=== PATIENT | female | born 1940 | race Caucasian/White ===

== ENCOUNTER 2016-05-24 19:42 | Inpatient (IN) | payer MEDICARE, OTHER ==
[~2016-05-24] VITALS: Ht 152.4 cm; Wt 82.7 kg
[2016-05-24] VITALS (8 sets, daily range): BP systolic 168–189; BP diastolic 82–121; PULSE 90–125; RESP 18–22; TEMP 99.1–102.8; O2SAT 95–99
[~2016-05-24 19:42] MED LIST: ASPI81TA82 PO; ATOR20TA PO; BUDE100T PO; FERR324T4 PO; GUAI100S6 PO; METO25 PO; MVI PO; PROT40TA PO; PROZ20CA11 PO
--- NOTE | 2016-05-24 20:30 | PD ---
HPI Chief Complaint: GI Complaint Time Seen by Provider: 20:22 Travel History International Travel<30 days: No Contact w/Intl Traveler<30days: No Traveled to known affect area: No History of Present Illness HPI The patient is a 75-year-old female that complains of midline suprapubic pain since yesterday. She has nausea without vomiting. She did not know she had a fever, the fever here is 102.8. She denies any flank pain. She does have dysuria, frequency and urgency. She has had an appendectomy but still has her gallbladder. She had previous surgery apparently for a perforated peptic ulcer. PFSH Past Medical History Arthritis: Yes Asthma: No Blood Disorders: No Anxiety: Yes Depression: Yes Heart Rhythm Problems: No Cancer: No Cardiac Catheterization: Yes Cardiovascular Problems: Yes (CABG x5) High Cholesterol: Yes Chemotherapy: No Chest Pain: Yes Congestive Heart Failure: No COPD: No Cerebrovascular Accident: Yes Coronary Artery Disease: Yes Diabetes: Yes (DIET CONTR.) Patient Takes Glucophage: No Diminished Hearing: Yes (RIGHT) Endocrine: Yes Gastrointestinal Disorders: Yes (GERD) GERD: No Genitourinary: No Hepatitis: No Hiatal Hernia: Yes Hypertension: Yes Immune Disorder: No Implanted Vascular Access Dvce: Yes Kidney Stones: No Musculoskeletal: Yes (ARTHRITIS) Neurologic: No Psychiatric: Yes (CLAUSTRAPHOBIA) Reproductive: No Respiratory: No Migraines: No Radiation Therapy: No Renal Failure: No Seizures: No Sickle Cell Disease: No Sleep Apnea: No Thyroid Disease: Yes Ulcer: Yes Tetanus Vaccination: Unknown Influenza Vaccination: Yes ?: Not Menopausal: Yes : 4 Para: 3 Miscarriage: 1 Tubal Ligation: Yes Past Surgical History Abdominal Surgery: Yes (SM. BOWEL RESECT. (ULCER), APPY, LAP GASTRIC BANDING) AICD: No Appendectomy: Yes Arteriovenous Shunt: No Cardiac Surgery: No Section: Yes (X2) Coronary Artery Bypass Graft: Yes Ear Surgery: No Endocrine Surgery: No Eye Surgery: No Genitourinary Surgery: No Gynecologic Surgery: Yes (C SECTION (X2), HYSTERECTOMY) Hysterectomy: Yes Insulin Pump: No Joint Replacement: Yes (BILAT KNEES) Oral Surgery: Yes (DENTAL EXTRACT., T & A) Pacemaker: No Thoracic Surgery: No Tonsillectomy: Yes Other Surgery: Yes (LAP BAND) Social History Alcohol Use: Yes (OCC) Tobacco Use: No (quit 30 years ago) Substance Use: No Allergies-Medications (Allergen,Severity, Reaction): Coded Allergies: Latex (Verified Allergy, Intermediate, HIVES, 04/18/15) Reported Meds & Prescriptions Reported Meds & Active Scripts Active Zofran (Ondansetron HCl) 4 Mg Tab 4 Mg PO Q6HR PRN Macrobid (Nitrofurantoin Monoh/Nitrofur Macro) 100 Mg Cap 100 Mg PO BID 10 Days Robitussin Ac (Guaifenesin/Codeine Phosphate) Syrp 5 Ml PO Q6H PRN Theragran (Multivitamins) 1 Tab Tab 1 Tab PO DAILY Prozac (Fluoxetine HCl) 20 Mg Cap 20 Mg PO DAILY Reported Bupropion Hcl (Bupropion HCl) 100 Mg Tab 100 Mg PO DAILY Aspir-81 (Aspirin) 81 Mg Tab 81 Mg PO DAILY Atorvastatin 20 mg tab (Atorvastatin Calcium) 20 Mg Tab 1 Tab PO DAILY 30 Days Protonix (Pantoprazole Sodium) 40 Mg Tab 40 Mg PO DAILY Metoprolol Tartrate 25 mg (Metoprolol Tartrate) 25 Mg Tab 25 Mg PO DAILY Ferrous Sulfate 325 Mg Tab 325 Mg PO DAILY Review of Systems Except as stated in HPI: all other systems reviewed are Neg Physical Exam Narrative GENERAL: The patient is alert, oriented 3 in moderate distress with her midline suprapubic discomfort. She is in no respiratory distress. Her vital signs show temperature of 102.8, blood pressure 188/121, heart rate of 125 with respirations of 18 and oximetry 96%. SKIN: Focused skin assessment warm/dry. HEAD: Atraumatic. Normocephalic. EYES: Pupils equal and round. No scleral icterus. No injection or drainage. ENT: No nasal bleeding or discharge. Mucous membranes pink and moist. NECK: Trachea midline. No JVD. CARDIOVASCULAR: Regular rate and rhythm. No murmur appreciated. RESPIRATORY: No accessory muscle use. Clear to auscultation. Breath sounds equal bilaterally. GASTROINTESTINAL: Abdomen soft, with tenderness to direct palpation in the midline epigastrium, nondistended. Hepatic and splenic margins not palpable. No guarding or rebound is present. MUSCULOSKELETAL: No obvious deformities. No clubbing. No cyanosis. No edema. NEUROLOGICAL: Awake and alert. No obvious cranial nerve deficits. Motor grossly within normal limits. Normal speech. PSYCHIATRIC: Appropriate mood and affect; insight and judgment normal. Data Data Last Documented VS Vital Signs Date Time Temp Pulse Resp B/P Pulse Ox O2 Delivery O2 Flow Rate FiO2 05/24/16 20:57 20 05/24/16 20:54 104 189/93 95 05/24/16 20:54 Nasal Cannula 2 05/24/16 19:45 102.8 Orders Complete Blood Count With Diff (05/24/16 20:22) Comprehensive Metabolic Panel (05/24/16 20:22) Lactic Acid Sepsis Protocol (05/24/16 20:22) Urinalysis - C+S If Indicated (05/24/16 20:22) Blood Culture (05/24/16 20:22) Chest, Pa & Lat (05/24/16 20:22) Ecg Monitoring (05/24/16 20:22) Iv Access Insert/Monitor (05/24/16 20:22) Oximetry (05/24/16 20:22) Oxygen Administration (05/24/16 20:22) Acetaminophen (Tylenol) (05/24/16 21:00) Urine Culture (05/24/16 20:50) Nitrofurantoin Monohyd Macrocr (Macrobid (05/24/16 22:15) Admit Order (Ed Use Only) (05/24/16 22:27) Sodium Chlor 0.9% 1000 Ml Inj (Ns 1000 M (05/24/16 22:30) Labs Laboratory Tests Test 05/24/16 05/24/16 05/24/16 19:40 20:30 20:50 Lactic Acid Level 2.0 mmol/L White Blood Count 16.7 TH/MM3 Red Blood Count 4.09 MIL/MM3 Hemoglobin 12.9 GM/DL Hematocrit 38.2 % Mean Corpuscular Volume 93.4 FL Mean Corpuscular Hemoglobin 31.4 PG Mean Corpuscular Hemoglobin 33.7 % Concent Red Cell Distribution Width 13.8 % Platelet Count 245 TH/MM3 Mean Platelet Volume 8.8 FL Neutrophils (%) (Auto) 91.6 % Lymphocytes (%) (Auto) 4.8 % Monocytes (%) (Auto) 2.3 % Eosinophils (%) (Auto) 0.2 % Basophils (%) (Auto) 1.1 % Neutrophils # (Auto) 15.3 TH/MM3 Lymphocytes # (Auto) 0.8 TH/MM3 Monocytes # (Auto) 0.4 TH/MM3 Eosinophils # (Auto) 0.0 TH/MM3 Basophils # (Auto) 0.2 TH/MM3 CBC Comment DIFF FINAL Differential Comment Sodium Level 140 MEQ/L Potassium Level 4.1 MEQ/L Chloride Level 104 MEQ/L Carbon Dioxide Level 25.3 MEQ/L Anion Gap 11 MEQ/L Blood Urea Nitrogen 17 MG/DL Creatinine 1.50 MG/DL Estimat Glomerular Filtration 34 ML/MIN Rate Random Glucose 169 MG/DL Calcium Level 8.5 MG/DL Total Bilirubin 0.6 MG/DL Aspartate Amino Transf 26 U/L (AST/SGOT) Alanine Aminotransferase 23 U/L (ALT/SGPT) Alkaline Phosphatase 106 U/L Total Protein 7.1 GM/DL Albumin 3.6 GM/DL Urine Color STRAW Urine Turbidity CLOUDY Urine pH 6.5 Urine Specific [place] 1.013 Urine Protein 100 mg/dL Urine Glucose (UA) NEG mg/dL Urine Ketones NEG mg/dL Urine Occult Blood MOD Urine Nitrite NEG Urine Bilirubin NEG Urine Leukocyte Esterase LARGE Urine RBC 4-9 /hpf Urine WBC 50-99 /hpf Urine Squamous Epithelial 6-8 /hpf Cells Urine Bacteria MOD /hpf Urine Mucus FEW /lpf Microscopic Urinalysis Comment CATH-CULTURE IND MDM Medical Decision Making Medical Screen Exam Complete: Yes Emergency Medical Condition: Yes Medical Record Reviewed: Yes Interpretation(s) The CBC shows a white count of 16,700 with 92% neutrophils but is otherwise unremarkable. The complete metabolic profile shows a creatinine of 1.5, GFR of 34, glucose 169 but is otherwise normal. The lactic acid is normal. The urine shows cloudy turbidity, moderate occult blood, large leukocyte Estrace with 4-9 red cells and 50-99 white cells and moderate bacteria and culture is indicated. Differential Diagnosis Cystitis, pyelonephritis, sepsis, pneumonia, bronchitis, electrolyte disorder, dehydration Narrative Course The patient was offered admission but she declined. She would much rather try it at home with oral antibiotics and return if not better. She should follow- up with her primary care physician this week. He needs to increase her liquid intake. We were about to discharge the patient but she changed her mind and said she wanted to be admitted. She states she lives alone and doesn't feel good because of the nausea. The patient does fit sepsis criteria. I discussed the patient with Dr. Quintanilla, the patient will be admitted to her. Sepsis Criteria SIRS Criteria (2 or more): Temp > 100.9 or < 96.8, Heart rate over 90, WBC > 81058, < 4000 or > 10% bands Sepsis Criteria (SIRS+source): Infect source susp/known Criteria Outcome: Meets sepsis criteria Physician Communication Physician Communication I discussed the patient with Dr. Quintanilla. Diagnosis Primary Impression: Pyelonephritis Additional Impression: Sepsis Admitting Information Admitting Physician Requests: Admit Scripts Ondansetron (Zofran)4 Mg Tab4 Mg PO Q6HR PRN (NAUSEA OR VOMITING) #15 TAB Ref 0 Prov:Mark Dueñas MD 05/24/16 Nitrofurantoin Monohydrate Macrocrystals (Macrobid)100 Mg Ive086 Mg PO BID 10 Days Ref 0 Prov:Mark Dueñas MD 05/24/16 Mark Dueñas MD May 24, 2016 20:29
[2016-05-24 20:39] LABS: AUTOMATED NEUTROPHIL # 15.3 TH/MM3 (1.8-7.7); BASOPHIL # 0.2 TH/MM3 (0-0.2); BASOPHIL % 1.1 % (0.0-2.0); EOSINOPHIL % 0.2 % (0.0-4.0); HEMATOCRIT 38.2 % (35.0-46.0); LYMPH % 4.8 % (9.0-44.0); LYMPHOCYTE # 0.8 TH/MM3 (1.0-4.8); MEAN CELL VOLUME 93.4 FL (80.0-100.0); MEAN CORPUSCULAR HEMOGLOBIN 31.4 PG (27.0-34.0); MEAN CORPUSCULAR HGB CONC 33.7 % (32.0-36.0); MONO % 2.3 % (0.0-8.0); NEUT % 91.6 % (16.0-70.0); PLATELET COUNT 245 TH/MM3 (150-450); RED BLOOD COUNT 4.09 MIL/MM3 (4.00-5.30); RED CELL DISTRIBUTION WIDTH 13.8 % (11.6-17.2); WHITE BLOOD COUNT 16.7 TH/MM3 (4.0-11.0)
[2016-05-24 20:47] LABS: CHLORIDE 104 MEQ/L (98-107); HEMO FLAGS DIFF FINAL; SODIUM (NA) 140 MEQ/L (136-145)
[2016-05-24 20:51] LABS: ANION GAP 11 MEQ/L (5-15); BICARBONATE 25.3 MEQ/L (21.0-32.0); BLOOD UREA NITROGEN 17 MG/DL (7-18)
[2016-05-24 20:54] LABS: ALT (GPT) 23 U/L (10-53); AST (GOT) 26 U/L (15-37); GLOMERULAR FILTRATION RATE 34 ML/MIN (>89)
[2016-05-24 20:55] LABS: POTASSIUM 4.1 MEQ/L (3.5-5.1); TOTAL BILIRUBIN ADULT 0.6 MG/DL (0.2-1.0)
[2016-05-24 20:57] LABS: ALKALINE PHOSPHATASE 106 U/L (45-117)
[2016-05-24] MEDS ORDERED: ACETAMINOPHEN 500 MG CPLT PO ONE (21:00)
[2016-05-24 21:02] LABS: GLUCOSE,URINE NEG (NEG); KETONE, URINE NEG (NEG); NITRITE,URINE NEG (NEG); PH, URINE 6.5 (5.0-8.5)
--- NOTE | 2016-05-24 21:10 | RADHPO ---
EXAM DATE/TIME: 05/24/2016 20:58 [facility] COMPARISON: CHEST PA & LAT, April 17, 2015, 18:44. INDICATIONS : Shortness of breath. MEDICAL HISTORY : Cardiovascular disease. SURGICAL HISTORY : CABG. ENCOUNTER: Initial ACUITY: 1 day PAIN SCORE: 0/10 LOCATION: Bilateral chest FINDINGS: No infiltrate, effusion or pneumothorax demonstrated. Heart size stable, upper limits of normal. Patient has had previous median sternotomy and CABG. Tortu ous and atherosclerotic aorta again noted. CONCLUSION: No evidence of acute cardiopulmonary disease. Prabhakar Ha MD on May 24, 2016 at 21:07 Board Certified Radiologist. This report was verified electronically.
[2016-05-24 21:13] LABS: BLOOD, URINE MOD (NEG); URINE COLOR STRAW (YELLW/STRAW)
[2016-05-24 21:16] LABS: MUCUS URINE FEW /lpf (OCC)
[2016-05-24 21:17] LABS: BACTERIA, URINE MOD /hpf; COMMENT (UR) CATH-CULTURE IND; CULTURE IF INDICATED CATH CULTURE IND
[2016-05-24] MEDS ORDERED: MACR100C2 PO (22:10)
[2016-05-24] MEDS ORDERED: ZOFR4TAB PO (22:10)
[2016-05-24] MEDS ORDERED: cefTRIAXone INJ 1,000 MG in SODIUM CHLORIDE 0.9% INJ 100 ML IV ONE ×2 (22:15→22:45)
[2016-05-24] MEDS ORDERED: NITROFURANTOIN MONOHYD MACROCR 100 MG CAP PO ONE (22:15)
[2016-05-24] MEDS ORDERED: SODIUM CHLOR 0.9% 1000 ML INJ 1,000 ML IV SCH (22:30)
[2016-05-24] MEDS ORDERED: SODIUM CHLORIDE 0.9% FLUSH 10 ML FLUSH IV FLUSH PRN (23:15)
[2016-05-24] MEDS ORDERED: NALOXONE HCL 0.4 MG/ML AMP IV PRN (23:15)
[2016-05-24] MEDS ORDERED: ONDANSETRON HCL 4 MG/2 ML VIAL IVP PRN (23:15)
[2016-05-25] VITALS (11 sets, daily range): BP systolic 121–161; BP diastolic 68–91; PULSE 64–89; RESP 16–20; TEMP 97–99.5; O2SAT 94–98
[2016-05-25] MEDS: CIPROFLOXACIN 400 MG PREMIX 200 ML IV SCH ×2 (00:48→12:20)
[2016-05-25] MEDS ORDERED: METOPROLOL TARTRATE 25 MG TAB PO ONE (02:15)
[2016-05-25] MEDS: ACETAMINOPHEN 325 MG TAB PO PRN ×2 (02:19→09:47)
[2016-05-25] MEDS ORDERED: DEXTROSE 50% IN WATER 50 ML VIAL(D50) IV PUSH PRN (05:45)
[2016-05-25] MEDS ORDERED: CALCIUM CARBONATE 500 MG CHEWABLE TAB CHEW PRN (05:45)
[2016-05-25] MEDS ORDERED: GLUCAGON 1 MG/ML VIAL OTHER PRN (05:45)
[2016-05-25] MEDS ORDERED: DOCUSATE SODIUM 100 MG CAP PO PRN (05:45)
[2016-05-25] MEDS ORDERED: PILL SPLITTER OTHER PRN (06:15)
[2016-05-25] MEDS: INSULIN ASPART SUPPLEMENTAL SCALE SQ SCH ×4 (06:27→20:58)
[2016-05-25] MEDS: OXYBUTYNIN CHLORIDE 5 MG TAB PO SCH ×3 (06:28→20:54)
[2016-05-25 07:31] LABS: AUTOMATED NEUTROPHIL # 15.7 TH/MM3 (1.8-7.7); BASOPHIL # 0.2 TH/MM3 (0-0.2); EOSINOPHIL # 0.1 TH/MM3 (0-0.4); EOSINOPHIL % 0.3 % (0.0-4.0); HEMATOCRIT 36.7 % (35.0-46.0); LYMPH % 7.2 % (9.0-44.0); LYMPHOCYTE # 1.3 TH/MM3 (1.0-4.8); MEAN CELL VOLUME 93.1 FL (80.0-100.0); MEAN CORPUSCULAR HEMOGLOBIN 29.7 PG (27.0-34.0); MEAN CORPUSCULAR HGB CONC 31.9 % (32.0-36.0); MONO % 5.9 % (0.0-8.0); NEUT % 85.6 % (16.0-70.0); PLATELET COUNT 215 TH/MM3 (150-450); RED BLOOD COUNT 3.95 MIL/MM3 (4.00-5.30); RED CELL DISTRIBUTION WIDTH 12.9 % (11.6-17.2); WHITE BLOOD COUNT 18.4 TH/MM3 (4.0-11.0)
[2016-05-25 07:40] LABS: HEMO FLAGS AUTO DIFF
[2016-05-25 07:42] LABS: POTASSIUM 3.8 MEQ/L (3.5-5.1)
[2016-05-25 07:46] LABS: BICARBONATE 27.5 MEQ/L (21.0-32.0)
[2016-05-25 08:08] LABS: SCAN/DIFF AUTO DIFF CONFIRMED
[2016-05-25] MEDS ORDERED: OXYBUTYNIN CHLORIDE 5 MG TAB PO SCH (09:00)
[2016-05-25] MEDS: SODIUM CHLORIDE 0.9% FLUSH 10 ML FLUSH IV FLUSH SCH ×2 (09:00→20:58)
--- NOTE | 2016-05-25 09:50 | HHI.HP ---
cc: Jose Holloway MD HPI [facility] Jose Holloway MD Admission Diagnosis sepsis, pyelonephritis Diagnoses: (1) Sepsis Diagnosis: Principal (2) Pyelonephritis Diagnosis: Principal (3) Acute renal failure superimposed on stage 3 chronic kidney disease Diagnosis: Principal Chief Complaint: suprapubic and R back pain Travel History International Travel<30 Days: No Contact w/Intl Traveler <30 Da: No Traveled to Known Affected Are: No Sepsis Criteria SIRS Criteria (2 or more): Temp > 100.9 or < 96.8, Heart rate over 90, WBC > 40994, < 4000 or > 10% bands Sepsis Criteria (SIRS+source): Infect source susp/known Criteria Outcome: Meets sepsis criteria History of Present Illness 75-year-old female with history of coronary artery disease, CVA, diet controlled diabetes, GERD, hypertension, HLD, anxiety and depression, arthritis presents with complaint of suprapubic and right back pain. She states the suprapubic pain started first on Tuesday and then 8 hours later she started to experience pain over the right flank region. She states the pain is constant dull ache. She states she'll try to lay a certain way but nothing makes it better. She admits to nausea. Denies any vomiting. She admits to dysuria and increased urinary frequency. Highest fever in ED of 102.8. Patient denies any history of UTIs or kidney infection. No acute bowel issues. Review of Systems Except as stated in HPI: all other systems reviewed are Neg Past Family Social History Past Medical History CAD CVA Hyperlipidemia Hypertension Diet-controlled diabetes GERD Arthritis Anxiety and depression Past Surgical History CABG x 5 Appendectomy LAP Band Small bowel resection due to ulcer 2 Hysterectomy Bilateral knee replacements Tonsillectomy Reported Medications Zofran (Ondansetron HCl) 4 Mg Tab 4 Mg PO Q6HR PRN Macrobid (Nitrofurantoin Monoh/Nitrofur Macro) 100 Mg Cap 100 Mg PO BID 10 Days Robitussin Ac (Guaifenesin/Codeine Phosphate) Syrp 5 Ml PO Q6H PRN Theragran (Multivitamins) 1 Tab Tab 1 Tab PO DAILY Prozac (Fluoxetine HCl) 20 Mg Cap 20 Mg PO DAILY Reported Bupropion Hcl (Bupropion HCl) 100 Mg Tab 100 Mg PO DAILY Aspir-81 (Aspirin) 81 Mg Tab 81 Mg PO DAILY Atorvastatin 20 mg tab (Atorvastatin Calcium) 20 Mg Tab 1 Tab PO DAILY 30 Days Protonix (Pantoprazole Sodium) 40 Mg Tab 40 Mg PO DAILY Metoprolol Tartrate 25 mg (Metoprolol Tartrate) 25 Mg Tab 25 Mg PO DAILY Ferrous Sulfate 325 Mg Tab 325 Mg PO DAILY Allergies: Coded Allergies: Latex (Verified Allergy, Intermediate, HIVES, 04/18/15) Family History Family history of MIs, CVAs, hypertension Social History Quit smoking cigarettes 30 years ago. Admits to occasional alcohol use. Physical Exam Vital Signs Vital Signs Date Time Temp Pulse Resp B/P Pulse Ox O2 Delivery O2 Flow Rate FiO2 05/25/16 08:00 99.1 72 18 145/82 96 05/25/16 06:00 75 05/25/16 05:00 76 05/25/16 04:00 64 05/25/16 04:00 98.1 66 20 161/82 97 05/25/16 03:00 70 05/25/16 02:00 89 05/25/16 01:42 98.7 78 20 121/91 96 05/25/16 01:00 99.0 87 20 139/68 98 05/24/16 23:12 99.1 90 20 168/99 98 Nasal Cannula 2 05/24/16 22:12 100.8 98 20 178/82 97 Nasal Cannula 2 05/24/16 22:00 100.9 98 20 168/82 99 Nasal Cannula 2 05/24/16 21:20 99 20 189/93 97 Nasal Cannula 2 05/24/16 20:57 20 05/24/16 20:54 104 20 189/93 95 05/24/16 20:54 95 Nasal Cannula 2 05/24/16 20:30 102.4 110 20 178/93 96 Nasal Cannula 2 05/24/16 20:20 101.9 108 22 177/96 97 Nasal Cannula 2 05/24/16 19:45 102.8 125 18 188/121 96 Physical Exam GENERAL: This is a pleasant elderly well-nourished, well-developed patient, in no apparent distress. SKIN: No rashes, ecchymoses or lesions. Warm and dry. HEAD: Atraumatic. Normocephalic. EYES: No scleral icterus. No injection or drainage. CARDIOVASCULAR: Regular rate and rhythm without murmurs, gallops, or rubs. RESPIRATORY: Clear to auscultation. Breath sounds equal bilaterally. No wheezes , rales, or rhonchi. GASTROINTESTINAL: Normoactive bowel sounds. Abdomen soft, non-tender, nondistended. Tender over suprapubic region and left lower quadrant. BACK: R sided CVA tenderness. NEUROLOGICAL: Awake and alert. Motor grossly within normal limits. Normal speech. PSYCHIATRIC: Normal mood and affect. Laboratory Laboratory Tests Test 05/24/16 05/24/16 05/24/16 05/25/16 19:40 20:30 20:50 07:25 Lactic Acid Level 2.0 White Blood Count 16.7 18.4 Red Blood Count 4.09 3.95 Hemoglobin 12.9 11.7 Hematocrit 38.2 36.7 Mean Corpuscular Volume 93.4 93.1 Mean Corpuscular Hemoglobin 31.4 29.7 Mean Corpuscular Hemoglobin 33.7 31.9 Concent Red Cell Distribution Width 13.8 12.9 Platelet Count 245 215 Mean Platelet Volume 8.8 8.5 Neutrophils (%) (Auto) 91.6 85.6 Lymphocytes (%) (Auto) 4.8 7.2 Monocytes (%) (Auto) 2.3 5.9 Eosinophils (%) (Auto) 0.2 0.3 Basophils (%) (Auto) 1.1 1.0 Neutrophils # (Auto) 15.3 15.7 Lymphocytes # (Auto) 0.8 1.3 Monocytes # (Auto) 0.4 1.1 Eosinophils # (Auto) 0.0 0.1 Basophils # (Auto) 0.2 0.2 CBC Comment DIFF FINAL AUTO DIFF Differential Comment AUTO DIFF CONFIRMED Sodium Level 140 142 Potassium Level 4.1 3.8 Chloride Level 104 105 Carbon Dioxide Level 25.3 27.5 Anion Gap 11 10 Blood Urea Nitrogen 17 17 Creatinine 1.50 1.50 Estimat Glomerular Filtration 34 34 Rate Random Glucose 169 120 Calcium Level 8.5 8.7 Total Bilirubin 0.6 Aspartate Amino Transf 26 (AST/SGOT) Alanine Aminotransferase 23 (ALT/SGPT) Alkaline Phosphatase 106 Total Protein 7.1 Albumin 3.6 Urine Color STRAW Urine Turbidity CLOUDY Urine pH 6.5 Urine Specific [place] 1.013 Urine Protein 100 Urine Glucose (UA) NEG Urine Ketones NEG Urine Occult Blood MOD Urine Nitrite NEG Urine Bilirubin NEG Urine Leukocyte Esterase LARGE Urine RBC 4-9 Urine WBC 50-99 Urine Squamous Epithelial 6-8 Cells Urine Bacteria MOD Urine Mucus FEW Microscopic Urinalysis Comment CATH-CULTURE IND Total Creatine Kinase 62 Date/Time Procedure Status Source Growth 05/24/16 20:50 Urine Culture Received Urine Catheterized Urine Pending 05/24/16 19:40 Aerobic Blood Culture Received Blood Peripheral Pending 05/24/16 19:40 Anaerobic Blood Culture Received Blood Peripheral Pending Result Diagram: 05/25/16 0725 05/25/1625 Imaging Last Impressions Chest X-Ray 05/24/162021 Signed Impressions: Service Date/Time: Tuesday, May 24, 2016 20:58 - CONCLUSION: No evidence of acute cardiopulmonary disease. Prabhakar Ha MD Assessment and Plan Assessment and Plan 75-year-old female with: Sepsis: WBC count 16.7-->18.4. MAXIMUM TEMPERATURE 102.8 in ED. Source of infection pyelonephritis. Lactic acid normal. -Patient received 1 L of fluids in the ED. Continue IV normal saline at 80 mL per hour. -Continue antibiotics as below -Tylenol for fever -Repeat a.m. CBC -Blood cultures pending Pyelonephritis: UTI personally interpreted without evidence of infection. Patient with right sided CVA tenderness, leukocytosis, and fever. -Continue Cipro every 12 hours IV -Urine culture pending -Monitor clinically. If patient fails to improve may need to consider CT imaging. Acute on chronic kidney disease: Cr 1.50 stable today. -Continue IVF as above -Repeat am BMP Diet-controlled diabetes: -Bedside BGL's and low dose SSI Chronic medical conditions including hypertension, hyperlipidemia, anxiety and depression, GERD: Patient has been continuing her baby aspirin and bupropion, but she states she was in [place] for 4-5 months and ran out of her statin, Protonix, metoprolol, ferrous sulfate, and Prozac which she is supposed to be taking. She states she did not call her PCP because she was mad at him. I informed the patient she needs to continue on these medications. Will resume these. GI prophylaxis: Protonix DVT prevention: TEDs and SCDs. Written by Heather Amor PA-C acting as scribe for Dr. Ying on 05/25/16 at 0945. This note was transcribed by scribe Heather Amor PA-C. I, Dr. Adal Ying personally performed the history, physical exam, and medical decision making; and confirmed the accuracy of the information in the transcribed note. Authenticated by Dr. Adal Ying on 05/25/16 at 18:50. Heather Amor May 25, 2016 09:50 Adal Ying MD May 26, 2016 16:51
[2016-05-25] MEDS ORDERED: ACETAMINOPHEN/HYDROcodone 325 MG/5 MG TAB PO PRN (10:00)
[2016-05-25] MEDS ORDERED: NALOXONE HCL 0.4 MG/ML AMP IV PRN (10:00)
[2016-05-25] MEDS ORDERED: MORPHINE SULFATE 4 MG/ML INJ IV PRN (10:00)
[2016-05-25] MEDS: ACETAMINOPHEN/HYDROcodone 325 MG/7.5 MG TAB PO PRN ×2 (10:44→20:55)
[2016-05-25] MEDS: PANTOPRAZOLE SOD 40 MG DELAYED RELEASE TAB PO SCH (12:00)
[2016-05-25] MEDS: buPROPion HCL 100 MG SUSTAINED RELEASE TAB PO SCH (12:19)
[2016-05-25] MEDS: ASPIRIN 81 MG CHEW TAB PO SCH (12:19)
[2016-05-25] MEDS: METOPROLOL TARTRATE 25 MG TAB PO SCH (12:19)
[2016-05-25] MEDS: SODIUM CHLOR 0.9% 1000 ML INJ 1,000 ML IV SCH (12:21)
[2016-05-25] MEDS: ATORVASTATIN 20 MG TAB PO SCH (20:54)
[2016-05-26] VITALS: BP 158/84; PULSE 77; RESP 18; TEMP 98.1; O2SAT 98
[2016-05-26] MEDS: CIPROFLOXACIN 400 MG PREMIX 200 ML IV SCH ×3 (01:02→23:36)
[2016-05-26] MEDS: SODIUM CHLOR 0.9% 1000 ML INJ 1,000 ML IV SCH ×3 (01:03→20:29)
[2016-05-26 04:00] VITALS: BP 120/60; PULSE 72; RESP 18; TEMP 99.1; O2SAT 99
[2016-05-26] MEDS: INSULIN ASPART SUPPLEMENTAL SCALE SQ SCH ×4 (06:07→20:29)
[2016-05-26 07:37] LABS: AUTOMATED NEUTROPHIL # 12.4 TH/MM3 (1.8-7.7); BASOPHIL # 0.2 TH/MM3 (0-0.2); BASOPHIL % 1.2 % (0.0-2.0); EOSINOPHIL # 0.3 TH/MM3 (0-0.4); EOSINOPHIL % 1.6 % (0.0-4.0); HEMATOCRIT 34.5 % (35.0-46.0); HEMO FLAGS DIFF FINAL; LYMPH % 9.9 % (9.0-44.0); LYMPHOCYTE # 1.6 TH/MM3 (1.0-4.8); MEAN CELL VOLUME 95.6 FL (80.0-100.0); MEAN CORPUSCULAR HEMOGLOBIN 30.5 PG (27.0-34.0); MEAN CORPUSCULAR HGB CONC 31.9 % (32.0-36.0); MONO % 8.8 % (0.0-8.0); NEUT % 78.5 % (16.0-70.0); PLATELET COUNT 218 TH/MM3 (150-450); RED CELL DISTRIBUTION WIDTH 13.7 % (11.6-17.2); WHITE BLOOD COUNT 15.9 TH/MM3 (4.0-11.0)
[2016-05-26 07:43] LABS: BICARBONATE 23.9 MEQ/L (21.0-32.0)
[2016-05-26 08:00] VITALS: BP 129/80; PULSE 76; RESP 20; TEMP 99; O2SAT 92
[2016-05-26] MEDS: OXYBUTYNIN CHLORIDE 5 MG TAB PO SCH ×2 (08:10→20:28)
[2016-05-26] MEDS: buPROPion HCL 100 MG SUSTAINED RELEASE TAB PO SCH (08:10)
[2016-05-26] MEDS: FERROUS SULFATE 325 MG (65 MG ELEMENTAL IRON) TAB PO SCH (08:10)
[2016-05-26] MEDS: SODIUM CHLORIDE 0.9% FLUSH 10 ML FLUSH IV FLUSH SCH ×2 (08:10→20:28)
[2016-05-26] MEDS: METOPROLOL TARTRATE 25 MG TAB PO SCH (08:10)
[2016-05-26] MEDS: FLUoxetine HCL 20 MG CAP PO SCH (08:11)
[2016-05-26] MEDS: PANTOPRAZOLE SOD 40 MG DELAYED RELEASE TAB PO SCH (08:11)
[2016-05-26] MEDS: ASPIRIN 81 MG CHEW TAB PO SCH (08:11)
[2016-05-26] MEDS ORDERED: INFLUENZA VIRUS VACCINE (QUADRIVALENT) 0.5 ML SYR IM ONE (10:00)
[2016-05-26 12:00] VITALS: BP 132/72; PULSE 64; RESP 20; TEMP 99.1; O2SAT 93
[2016-05-26 16:00] VITALS: BP 149/72; PULSE 74; RESP 20; TEMP 99.1; O2SAT 92
--- NOTE | 2016-05-26 18:56 | HHI.PR ---
Subjective Remarks Patient evaluated earlier at 1255. Follow up for sepsis, pyelonephritis. Patient denies any further abdominal pain or flank pain. She does admit to feeling weak. Objective Vitals Vital Signs Date Time Temp Pulse Resp B/P Pulse Ox O2 Delivery O2 Flow Rate FiO2 05/26/16 16:00 99.1 74 20 149/72 92 05/26/16 12:00 99.1 64 20 132/72 93 05/26/16 08:00 99.0 76 20 129/80 92 05/26/16 04:00 99.1 72 18 120/60 99 05/26/16 00:00 98.1 77 18 158/84 98 05/25/16 21:55 20 05/25/16 20:00 97.0 70 18 153/77 98 05/25/16 20:00 67 I/O 05/25/16 05/25/16 05/25/16 05/26/16 05/26/16 05/26/16 07:00 15:00 23:00 07:00 15:00 23:00 Intake Total 240 ml 900 ml 240 ml 1487 ml 470 ml Output Total 1200 ml Balance 240 ml 900 ml 240 ml 1487 ml 470 ml -1200 ml Intake Oral 240 ml 900 ml 240 ml IV Total 1487 ml 470 ml Output Urine Total 1200 ml # Voids 3 4 3 # Bowel Movements 0 0 Result Diagram: 05/26/1672405/26/16724 Objective Remarks GENERAL: Pleasant well-nourished, well-developed patient in apparent distress. SKIN: Warm and dry. HEAD: Atraumatic. Normocephalic. CARDIOVASCULAR: Regular rate and rhythm. RESPIRATORY: No accessory muscle use. Clear to auscultation. Breath sounds equal bilaterally. GASTROINTESTINAL: Normoactive bowel sounds. Abdomen soft, non-tender, nondistended. NEUROLOGICAL: Awake and alert. Normal speech. PSYCHIATRIC: Appropriate mood and affect; insight and judgment normal. Urinary Catheter: No Vascular Central Line Catheter: No A/P Problem List: (1) Sepsis ICD Code: A41.9 Status: Resolved (2) Pyelonephritis ICD Code: N12 Status: Acute (3) Acute renal failure superimposed on stage 3 chronic kidney disease ICD Code: N17.9 Status: Acute (4) Generalized weakness ICD Code: R53.1 Status: Acute Assessment and Plan 75-year-old female with: Sepsis: Improving. WBC count 16.7-->18.4-->15.9. MAXIMUM TEMPERATURE 102.8 in ED. Source of infection pyelonephritis. Lactic acid normal. -Continue IV normal saline at 80 mL per hour. -Continue antibiotics as below -Tylenol for fever -Repeat a.m. CBC -Blood cultures no growth in 2 days Pyelonephritis: UTI with evidence of infection. Patient with right sided CVA tenderness, leukocytosis, and fever. Improving, flank pain now resolved. Afebrile. -Urine culture reviewed with E.coli susceptible to Cipro -Continue Cipro every 12 hours IV Acute on chronic kidney disease: Improved. Cr 1.50-->1.40 -Continue IVF as above -Repeat am BMP Generalized weakness: likely attributed to infection -Consult PT Diet-controlled diabetes: -Bedside BGL's and low dose SSI Chronic medical conditions including hypertension, hyperlipidemia, anxiety and depression, GERD: Patient has been continuing her baby aspirin and bupropion, but she states she was in [place] for 4-5 months and ran out of her statin, Protonix, metoprolol, ferrous sulfate, and Prozac which she is supposed to be taking. She states she did not call her PCP because she was mad at him. I informed the patient she needs to continue on these medications. Medications resumed. GI prophylaxis: Protonix DVT prevention: TEDs and SCDs. Written by Heather Amor PA-C acting as scribe for Dr. Ngo on 05/26/16 at 1255. This note was transcribed by scribe Heather Amor PA-C. I, Dr. Garret Ngo personally performed the history, physical exam, and medical decision making; and confirmed the accuracy of the information in the transcribed note. Authenticated by Dr. Garret Ngo on 05/27/16 at 07:56. Heather Amor May 26, 2016 18:56 Garret Ngo MD May 27, 2016 07:56
[2016-05-26 20:00] VITALS: BP 162/83; PULSE 74; PULSE 80; RESP 20; TEMP 98.5; O2SAT 92
[2016-05-26] MEDS: ATORVASTATIN 20 MG TAB PO SCH (20:28)
[2016-05-26] MEDS: ACETAMINOPHEN/HYDROcodone 325 MG/7.5 MG TAB PO PRN (20:28)
[2016-05-27] VITALS: BP 149/73; PULSE 68; RESP 20; TEMP 98.2; O2SAT 92
[2016-05-27 04:00] VITALS: BP 175/86; PULSE 79; RESP 20; TEMP 98.5; O2SAT 93
[2016-05-27 05:40] LABS: AUTOMATED NEUTROPHIL # 7.8 TH/MM3 (1.8-7.7); BASOPHIL # 0.2 TH/MM3 (0-0.2); BASOPHIL % 1.5 % (0.0-2.0); EOSINOPHIL # 0.4 TH/MM3 (0-0.4); EOSINOPHIL % 3.2 % (0.0-4.0); HEMATOCRIT 32.2 % (35.0-46.0); LYMPH % 12.5 % (9.0-44.0); LYMPHOCYTE # 1.4 TH/MM3 (1.0-4.8); MEAN CELL VOLUME 93.4 FL (80.0-100.0); MEAN CORPUSCULAR HEMOGLOBIN 29.6 PG (27.0-34.0); MEAN CORPUSCULAR HGB CONC 31.7 % (32.0-36.0); MONO % 10.6 % (0.0-8.0); NEUT % 72.2 % (16.0-70.0); PLATELET COUNT 218 TH/MM3 (150-450); RED BLOOD COUNT 3.45 MIL/MM3 (4.00-5.30); RED CELL DISTRIBUTION WIDTH 13.1 % (11.6-17.2)
[2016-05-27 05:43] LABS: HEMO FLAGS AUTO DIFF
[2016-05-27 05:53] LABS: POTASSIUM 3.8 MEQ/L (3.5-5.1)
[2016-05-27 05:56] LABS: BICARBONATE 22.8 MEQ/L (21.0-32.0)
[2016-05-27 05:59] LABS: PLATELET ESTIMATE SMEAR NORMAL (NORMAL); PLATELET MORPHOLOGY NORMAL (NORMAL); SCAN/DIFF AUTO DIFF CONFIRMED
[2016-05-27] MEDS: INSULIN ASPART SUPPLEMENTAL SCALE SQ SCH ×2 (06:24→12:01)
[2016-05-27 09:01] VITALS: BP 188/99; PULSE 79; RESP 14; TEMP 98.7; O2SAT 93
[2016-05-27] MEDS: buPROPion HCL 100 MG SUSTAINED RELEASE TAB PO SCH (09:13)
[2016-05-27] MEDS: OXYBUTYNIN CHLORIDE 5 MG TAB PO SCH (09:13)
[2016-05-27] MEDS: ASPIRIN 81 MG CHEW TAB PO SCH (09:13)
[2016-05-27] MEDS: METOPROLOL TARTRATE 25 MG TAB PO SCH (09:13)
[2016-05-27] MEDS: FERROUS SULFATE 325 MG (65 MG ELEMENTAL IRON) TAB PO SCH (09:13)
[2016-05-27] MEDS: SODIUM CHLORIDE 0.9% FLUSH 10 ML FLUSH IV FLUSH SCH (09:13)
[2016-05-27] MEDS: PANTOPRAZOLE SOD 40 MG DELAYED RELEASE TAB PO SCH (09:13)
[2016-05-27] MEDS: FLUoxetine HCL 20 MG CAP PO SCH (09:13)
--- NOTE | 2016-05-27 09:27 | HHI.FF ---
Face to Face Verification Diagnosis: (1) Pyelonephritis (2) DM (diabetes mellitus) (3) CKD (chronic kidney disease) (4) HTN (hypertension) (5) Impaired gait Physical Therapy Order: Evaluate and Treat Home Health Nursing Order: Nursing assessment with vital signs I have seen patient Lou Peterson on 05/27/16. My clinical findings support the need for the requested home health care services because: Deconditioned w/ increased weakness I certify that my clinical findings support that this patient is homebound because: Unsteady gait/balance Garret Ngo MD May 27, 2016 09:27
[2016-05-27] MEDS ORDERED: METO25TA3 PO (09:33)
[2016-05-27] MEDS ORDERED: FLUO20CA4 PO (09:33)
[2016-05-27] MEDS ORDERED: CIPR500T2 PO (09:33)
[2016-05-27] MEDS ORDERED: FERR325T PO (09:33)
[2016-05-27] MEDS ORDERED: PANT40TA3 PO (09:33)
[2016-05-27] MEDS ORDERED: ATOR20TA15 PO (09:33)
[2016-05-27] MEDS ORDERED: BUPR100CR PO (09:33)
--- NOTE | 2016-05-27 09:35 | HHI.DCPOC ---
Discharge Care Plan Diagnosis: (1) Pyelonephritis (2) Generalized weakness (3) Acute renal failure superimposed on stage 3 chronic kidney disease Goals to Promote Your Health * To prevent worsening of your condition and complications * To maintain your health at the optimal level Directions to Meet Your Goals Take your medications as prescribed Follow your dietary instruction Follow activity as directed Keep your appointments as scheduled Take your immunizations and boosters as scheduled If your symptoms worsen call your PCP, if no PCP go to Urgent Care Center or Emergency Room Smoking is Dangerous to Your Health. Avoid second hand smoke Call the 24-hour hour crisis hotline for domestic abuse at Garret Ngo MD May 27, 2016 09:34
--- NOTE | 2016-05-27 09:37 | HHI.DS ---
cc: Jose Holloway MD Discharge Summary Admission Date May 25, 2016 at 16:04 Discharge Date: May 27, 2016 Admitting Diagnosis sepsis, pyelonephritis (1) Sepsis ICD Code: A41.9 (2) Pyelonephritis ICD Code: N12 (3) Acute renal failure superimposed on stage 3 chronic kidney disease ICD Code: N17.9 (4) Generalized weakness ICD Code: R53.1 Procedures None Brief History - From Admission 75-year-old female with history of coronary artery disease, CVA, diet controlled diabetes, GERD, hypertension, HLD, anxiety and depression, arthritis presents with complaint of suprapubic and right back pain. She states the suprapubic pain started first on Tuesday and then 8 hours later she started to experience pain over the right flank region. She states the pain is constant dull ache. She states she'll try to lay a certain way but nothing makes it better. She admits to nausea. Denies any vomiting. She admits to dysuria and increased urinary frequency. Highest fever in ED of 102.8. Patient denies any history of UTIs or kidney infection. No acute bowel issues. CBC/BMP: 05/27/16 0511 05/27/16 0511 Significant Findings Laboratory Tests Test 05/24/16 05/24/16 05/25/16 05/26/16 20:30 20:50 07:25 07:25 Creatinine 1.50 MG/DL 1.50 MG/DL 1.40 MG/DL (0.50-1.00) (0.50-1.00) (0.50-1.00) Estimat Glomerular Filtration 34 ML/MIN (>89) 34 ML/MIN (>89) 36 ML/MIN (>89) Rate Random Glucose 169 MG/DL 120 MG/DL 113 MG/DL (74-106) (74-106) (74-106) White Blood Count 16.7 TH/MM3 18.4 TH/MM3 15.9 TH/MM3 (4.0-11.0) (4.0-11.0) (4.0-11.0) Neutrophils (%) (Auto) 91.6 % 85.6 % 78.5 % (16.0-70.0) (16.0-70.0) (16.0-70.0) Lymphocytes (%) (Auto) 4.8 % 7.2 % (9.0-44.0) (9.0-44.0) Neutrophils # (Auto) 15.3 TH/MM3 15.7 TH/MM3 12.4 TH/MM3 (1.8-7.7) (1.8-7.7) (1.8-7.7) Lymphocytes # (Auto) 0.8 TH/MM3 (1.0-4.8) Urine Turbidity CLOUDY (CLEAR) Urine Protein 100 mg/dL (NEG-TRACE) Urine Occult Blood MOD (NEG) Urine Leukocyte Esterase LARGE (NEG) Urine RBC 4-9 /hpf (0-3) Urine WBC 50-99 /hpf (0-5) Urine Squamous Epithelial 6-8 /hpf (0-5) Cells Urine Bacteria MOD /hpf (NONE) Urine Mucus FEW /lpf (OCC) Red Blood Count 3.95 MIL/MM3 3.60 MIL/MM3 (4.00-5.30) (4.00-5.30) Mean Corpuscular Hemoglobin 31.9 % 31.9 % Concent (32.0-36.0) (32.0-36.0) Monocytes # (Auto) 1.1 TH/MM3 1.4 TH/MM3 (0-0.9) (0-0.9) Hemoglobin 11.0 GM/DL (11.6-15.3) Hematocrit 34.5 % (35.0-46.0) Monocytes (%) (Auto) 8.8 % (0.0-8.0) Test 05/27/16 05:11 Red Blood Count 3.45 MIL/MM3 (4.00-5.30) Hemoglobin 10.2 GM/DL (11.6-15.3) Hematocrit 32.2 % (35.0-46.0) Mean Corpuscular Hemoglobin 31.7 % Concent (32.0-36.0) Neutrophils (%) (Auto) 72.2 % (16.0-70.0) Monocytes (%) (Auto) 10.6 % (0.0-8.0) Neutrophils # (Auto) 7.8 TH/MM3 (1.8-7.7) Monocytes # (Auto) 1.2 TH/MM3 (0-0.9) Chloride Level 109 MEQ/L (98-107) Creatinine 1.30 MG/DL (0.50-1.00) Estimat Glomerular Filtration 40 ML/MIN (>89) Rate Random Glucose 111 MG/DL (74-106) Imaging Last Impressions Chest X-Ray 05/24/162021 Signed Impressions: Service Date/Time: Tuesday, May 24, 2016 20:58 - CONCLUSION: No evidence of acute cardiopulmonary disease. Prabhakar Ha MD PE at Discharge General: Elderly female in no acute distress. Heart: Regular rate and rhythm. No murmur. Lungs: Clear to auscultation bilaterally. No wheezes, rales, or rhonchi. Breathing is nonlabored. Abdomen: Soft, nontender, nondistended. No flank tenderness. Extremities: No lower extremity edema. Psych: Alert and oriented. Pt update on day of discharge Patient states that she feels much better. Weakness has improved. She denies abdominal pain or flank pain. No fever or chills. No nausea, vomiting. She feels ready to go home. Hospital Course The patient was admitted for treatment of pyelonephritis, sepsis. She was continued on IV fluids and her creatinine was monitored closely. She was started on IV antibiotics. She showed clinical improvement throughout the hospitalization. On the day of discharge, the patient was felt to be stable for discharge home. She was given a short-term prescription for each of her chronic medications and advised to follow-up with her PCP for further refills or possible medication adjustments. Pt Condition on Discharge: Stable Discharge Disposition: Disch w/ Home Health Serv Discharge Time: > 30 minutes Discharge Instructions DIET: Follow Instructions for: Heart Healthy Diet Activities you can perform: Regular-No Restrictions Follow up Referrals: PCP Follow-up - 1 Week New Medications: Ciprofloxacin (Ciprofloxacin) 500 Mg Tab 500 MG PO BID Infection #10 Ref 0 TAB Atorvastatin (Atorvastatin) 20 Mg Tab 20 MG PO HS Cholesterol Management #30 Ref 0 TAB Bupropion HCl ER 12 HR (Wellbutrin SR 12 HR) 100 Mg Tab 100 MG PO DAILY Depression Control #30 Ref 0 TAB Ferrous Sulfate (Ferrous Sulfate) 325 Mg Tab 325 MG PO DAILY supplement #30 Ref 0 TAB Fluoxetine (Fluoxetine) 20 Mg Cap 20 MG PO DAILY Depression Control #30 Ref 0 CAP Metoprolol Tartrate (Metoprolol Tartrate) 25 Mg Tab 25 MG PO BID Blood Pressure Management #30 Ref 0 TAB Pantoprazole (Pantoprazole) 40 Mg Tab 40 MG PO DAILY Reflux #30 Ref 0 TAB Continued Medications: Aspirin (Aspir-81) 81 Mg Tab 81 MG PO DAILY TAB Multivitamins (Theragran) 1 Tab Tab 1 TAB PO DAILY #30 Ref 1 TAB Discontinued Medications: Atorvastatin 20 mg (Atorvastatin 20 mg tab) 20 Mg Tab 1 TAB PO DAILY Days 30 TAB Bupropion Hcl (Bupropion Hcl) 100 Mg Tab 100 MG PO DAILY TAB Ferrous Sulfate (Ferrous Sulfate) 325 Mg Tab 325 MG PO DAILY TAB Fluoxetine Hcl (Prozac) 20 Mg Cap 20 MG PO DAILY #30 Ref 1 CAP Guaifenesin-Codeine (Robitussin Ac) Syrp 5 ML PO Q6H PRN COUGH #120 ML Metoprolol Tartrate 25 mg (Metoprolol Tartrate 25 mg) 25 Mg Tab 25 MG PO DAILY TAB Nitrofurantoin Monohydrate Macrocrystals (Macrobid) 100 Mg Cap 100 MG PO BID Infection Days 10 Ref 0 CAP Ondansetron (Zofran) 4 Mg Tab 4 MG PO Q6HR PRN NAUSEA OR VOMITING #15 Ref 0 TAB Pantoprazole Sodium (Protonix) 40 Mg Tab 40 MG PO DAILY TAB Garret Ngo MD May 27, 2016 09:37
[2016-05-27] MEDS: CIPROFLOXACIN 400 MG PREMIX 200 ML IV SCH (12:01)
[2016-07-15] MEDS ORDERED: WHEEMIS3 (14:37)
[2016-07-20] MEDS ORDERED: HYDR-3516 PO (08:46)
[2016-07-20] MEDS ORDERED: AMLO5 PO (08:46)
[2016-07-20] MEDS ORDERED: PLAV75TA29 PO (08:46)
[2016-07-20] MEDS ORDERED: ACET1TAB86 PO (08:46)
[2016-07-20] MEDS ORDERED: BUPR100CR PO (08:46)
[2016-07-20] MEDS ORDERED: PROT40TA PO (08:46)
[2016-07-20] MEDS ORDERED: ATOR20TA15 PO (08:46)
[2016-07-20] MEDS ORDERED: ASPI325T33 PO (08:46)
[2016-07-20] MEDS ORDERED: FERR324T4 PO (08:46)
[2016-07-20] MEDS ORDERED: METO25TA3 PO (08:46)
== END 2016-05-27 15:15 | disposition home or self-care (01) | DRG 872 ==
LOC: PHED 19:42 → PHEDA 22:29 → INTOOBSV 22:29 → PH3A 05-25 01:14 → OBSVTOIN 05-25 16:04
PROVIDERS: ADMIT Family Medicine; ATTEND Family Medicine
DX: A41.9 Sepsis, unspecified organism (principal); N17.9 Acute kidney failure, unspecified; E11.22 Type 2 diabetes mellitus with diabetic chronic kidney disease; I25.810 Atherosclerosis of coronary artery bypass graft(s) without angina pectoris; N12 Tubulo-interstitial nephritis, not specified as acute or chronic; N18.3 Chronic kidney disease, stage 3 (moderate); I12.9 Hypertensive chronic kidney disease with stage 1 through stage 4 chronic kidney disease, or unspecified chronic kidney disease; E78.5 Hyperlipidemia, unspecified; Z95.1 Presence of aortocoronary bypass graft; K21.9 Gastro-esophageal reflux disease without esophagitis; H91.90 Unspecified hearing loss, unspecified ear; F41.8 Other specified anxiety disorders; Z86.73 Personal history of transient ischemic attack (TIA), and cerebral infarction without residual deficits; Z87.11 Personal history of peptic ulcer disease; Z96.653 Presence of artificial knee joint, bilateral
CPT/HCPCS: 71020; 80048; 80053; 81001; 82550; 82948; 83605; 83735; 85025; 87040; 87077; 87086; 87186; 90471; 90686; G0008; G0009; G0378; J0696; J0744; J1815; J2405; J7030; Q2038

== ENCOUNTER → 2016-06-22 | Outpatient (CLI) | payer MEDICARE, OTHER ==
[~2016-06-22] MED LIST changes: +ACET1TAB86 PO; +AMLO5 PO; +ASPI325T33 PO; -ATOR20TA PO; +ATOR20TA15 PO; -BUDE100T PO; +BUPR100CR PO; +CIPR500T2 PO; +FERR325T PO; +FLUO20CA12 PO; +FLUO20CA4 PO; -GUAI100S6 PO; +HYDR-3516 PO; -METO25 PO; +METO25TA3 PO; +PANT40TA3 PO; +PLAV75TA29 PO; -PROZ20CA11 PO; +WHEEMIS3
--- NOTE | 2016-06-22 13:38 | EKG ---
Date Performed: 06/22/2016 Time Performed: 11:15:48 PTAGE: 75 years EKG: Sinus rhythm WITH OCCASIONAL VENTRICULAR PREMATURE COMPLEXES LEFT VENTRICULAR HYPERTROPHY AND ST-T CHANGE POSSIBL E SEPTAL MYOCARDIAL INFARCTION , PROBABLY OLD ABNORMAL ECG PREVIOUS TRACING : 10/11/2013 21.34 Compared to prior tracing no significant change DOCTOR: Medhat Rhodes Interpretating Date/Time 06/22/2016 13:36:24
== END ==
LOC: HCVO 11:00
PROVIDERS: ATTEND Ophthalmology
DX: Z01.810 Encounter for preprocedural cardiovascular examination (principal); I51.7 Cardiomegaly; Z01.812 Encounter for preprocedural laboratory examination
CPT/HCPCS: 36415; 85027; 93005

== ENCOUNTER → 2016-06-22 | Outpatient (CLI) | payer MEDICARE, OTHER ==
[2016-06-22 11:53] LABS: HEMATOCRIT 35.9 % (35.0-46.0); MEAN CELL VOLUME 93.9 FL (80.0-100.0); MEAN CORPUSCULAR HEMOGLOBIN 29.9 PG (27.0-34.0); MEAN CORPUSCULAR HGB CONC 31.8 % (32.0-36.0); PLATELET COUNT 235 TH/MM3 (150-450); RED BLOOD COUNT 3.83 MIL/MM3 (4.00-5.30); RED CELL DISTRIBUTION WIDTH 14.1 % (11.6-17.2); REVIEW FLAG FINAL; WHITE BLOOD COUNT 7.9 TH/MM3 (4.0-11.0)
== END ==
LOC: CLAB 11:29
PROVIDERS: ATTEND Ophthalmology
DX: Z01.812 Encounter for preprocedural laboratory examination (principal)
CPT/HCPCS: 36415; 85027

== ENCOUNTER 2016-07-02 18:34 | Inpatient (IN) | payer MEDICARE, OTHER ==
[~2016-07-02] VITALS: Ht 152.4 cm; Wt 88.8 kg
[~2016-07-02 18:34] MED LIST changes: -ACET1TAB86 PO; -AMLO5 PO; -ASPI325T33 PO; -FERR324T4 PO; -FLUO20CA12 PO; -HYDR-3516 PO; -PLAV75TA29 PO; -PROT40TA PO; -WHEEMIS3
[2016-07-02] MEDS ORDERED: FERR324T4 PO (18:44)
[2016-07-02] MEDS ORDERED: PROT40TA PO (18:44)
[2016-07-02] MEDS ORDERED: FLUO20CA12 PO (18:45)
[2016-07-02 18:46] VITALS: BP 165/104; PULSE 77; RESP 18; TEMP 97.8; O2SAT 99
[2016-07-02] MEDS ORDERED: SODIUM CHLORIDE 0.9% FLUSH 10 ML FLUSH IVF PRN (19:15)
[2016-07-02 19:17] VITALS: RESP 18; O2SAT 99
--- NOTE | 2016-07-02 19:18 | PD ---
HPI Chief Complaint: General Weakness Time Seen by Provider: 19:13 Travel History International Travel<30 days: No Contact w/Intl Traveler<30days: No Traveled to known affect area: No History of Present Illness HPI The patient is a 75-year-old female that 2 days ago noticed her hip "collapsed on" her. Thereafter she felt twice 2 days ago and discovered every time she puts weight on the hip it hurts and she cannot walk. She denies any other injury. She denies any head trauma. She denies any loss of consciousness. She denies any nausea or vomiting. She is not on any anticoagulants. PFSH Past Medical History Hx Anticoagulant Therapy: Yes Arthritis: Yes Asthma: No Blood Disorders: No Anxiety: Yes Depression: Yes Heart Rhythm Problems: No Cancer: No Cardiac Catheterization: Yes Cardiovascular Problems: Yes High Cholesterol: Yes Chemotherapy: No Chest Pain: Yes Congestive Heart Failure: No COPD: No Cerebrovascular Accident: Yes Coronary Artery Disease: Yes Diabetes: Yes (DIET CONTR.) Patient Takes Glucophage: No Diminished Hearing: Yes (RIGHT) Endocrine: Yes Gastrointestinal Disorders: Yes (GERD) GERD: No Genitourinary: No Hepatitis: No Hiatal Hernia: Yes Hypertension: Yes Immune Disorder: No Implanted Vascular Access Dvce: Yes Kidney Stones: No Musculoskeletal: Yes (ARTHRITIS) Neurologic: No Psychiatric: Yes (CLAUSTRAPHOBIA) Reproductive: No Respiratory: No Migraines: No Radiation Therapy: No Renal Failure: No Seizures: No Sickle Cell Disease: No Sleep Apnea: No Thyroid Disease: Yes Ulcer: Yes Tetanus Vaccination: < 5 Years Influenza Vaccination: Yes ?: Not Menopausal: Yes : 4 Para: 3 Miscarriage: 1 Tubal Ligation: Yes Past Surgical History Abdominal Surgery: Yes (SM. BOWEL RESECT. (ULCER), APPY, LAP GASTRIC BANDING) AICD: No Appendectomy: Yes Arteriovenous Shunt: No Cardiac Surgery: No Section: Yes (X2) Coronary Artery Bypass Graft: Yes Ear Surgery: No Endocrine Surgery: No Eye Surgery: No Genitourinary Surgery: No Gynecologic Surgery: Yes (C SECTION (X2), HYSTERECTOMY) Hysterectomy: Yes Insulin Pump: No Joint Replacement: Yes (BILAT KNEES) Oral Surgery: Yes (DENTAL EXTRACT., T & A) Pacemaker: No Thoracic Surgery: No Tonsillectomy: Yes Other Surgery: Yes (LAP BAND) Social History Alcohol Use: Yes (OCC) Tobacco Use: No (quit 30 years ago) Substance Use: No Allergies-Medications (Allergen,Severity, Reaction): Coded Allergies: Latex (Verified Allergy, Intermediate, HIVES, 07/02/16) Reported Meds & Prescriptions Reported Meds & Active Scripts Active Wellbutrin SR 12 HR (Bupropion HCl) 100 Mg Tab 100 Mg PO DAILY Atorvastatin (Atorvastatin Calcium) 20 Mg Tab 20 Mg PO HS Metoprolol Tartrate 25 Mg Tab 25 Mg PO BID Reported Fluoxetine (Fluoxetine HCl) 20 Mg Capsule 20 Mg PO DAILY Protonix (Pantoprazole Sodium) 40 Mg Tab 40 Mg PO DAILY Ferrous Sulfate DR (Ferrous Sulfate) 324 Mg Tabdr 325 Mg PO DAILY Review of Systems Except as stated in HPI: all other systems reviewed are Neg Physical Exam Narrative GENERAL: The patient is alert, oriented 3 in moderate apparent distress with her right hip pain. Her blood pressure is 165/104 but the rest the vital signs are normal. SKIN: Focused skin assessment warm/dry. HEAD: Atraumatic. Normocephalic. EYES: Pupils equal and round. No scleral icterus. No injection or drainage. ENT: No nasal bleeding or discharge. Mucous membranes pink and moist. NECK: Trachea midline. No JVD. CARDIOVASCULAR: Regular rate and rhythm. No murmur appreciated. RESPIRATORY: No accessory muscle use. Clear to auscultation. Breath sounds equal bilaterally. GASTROINTESTINAL: Abdomen soft, non-tender, nondistended. Hepatic and splenic margins not palpable. MUSCULOSKELETAL: No obvious deformities. No clubbing. No cyanosis. No edema. There is slight tenderness over the right hip to direct palpation. There is no foreshortening and good capillary refill and pinprick is present distally. Good dorsalis pedis pulses are present on the right. NEUROLOGICAL: Awake and alert. No obvious cranial nerve deficits. Motor grossly within normal limits. Normal speech. PSYCHIATRIC: Appropriate mood and affect; insight and judgment normal. Data Data Last Documented VS Vital Signs Date Time Temp Pulse Resp B/P Pulse Ox O2 Delivery O2 Flow Rate FiO2 07/02/16 21:00 81 18 157/89 97 Room Air 07/02/16 18:46 97.8 Orders Electrocardiogram (07/02/16 19:13) Complete Blood Count With Diff (07/02/16 19:13) Comprehensive Metabolic Panel (07/02/16 19:13) Urinalysis - C+S If Indicated (07/02/16 19:13) Hip, Uni(Ap&Lat) W Ap Pelvis (07/02/16 19:13) Iv Access Insert/Monitor (07/02/16 19:13) Oximetry (07/02/16 19:13) Ecg Monitoring (07/02/16 19:13) Sodium Chloride 0.9% Flush (Ns Flush) (07/02/16 19:15) Ct Hip W/O Contrast (07/02/16 ) Admit Order (Ed Use Only) (07/02/16 22:03) Labs Laboratory Tests Test 07/02/16 07/02/16 18:50 21:15 White Blood Count 8.9 TH/MM3 Red Blood Count 4.18 MIL/MM3 Hemoglobin 12.9 GM/DL Hematocrit 38.7 % Mean Corpuscular Volume 92.7 FL Mean Corpuscular Hemoglobin 30.9 PG Mean Corpuscular Hemoglobin 33.4 % Concent Red Cell Distribution Width 13.6 % Platelet Count 291 TH/MM3 Mean Platelet Volume 9.4 FL Neutrophils (%) (Auto) 55.8 % Lymphocytes (%) (Auto) 30.4 % Monocytes (%) (Auto) 9.8 % Eosinophils (%) (Auto) 3.3 % Basophils (%) (Auto) 0.7 % Neutrophils # (Auto) 5.0 TH/MM3 Lymphocytes # (Auto) 2.7 TH/MM3 Monocytes # (Auto) 0.9 TH/MM3 Eosinophils # (Auto) 0.3 TH/MM3 Basophils # (Auto) 0.1 TH/MM3 CBC Comment AUTO DIFF Differential Comment AUTO DIFF CONFIRMED Sodium Level 140 MEQ/L Potassium Level 4.3 MEQ/L Chloride Level 103 MEQ/L Carbon Dioxide Level 29.1 MEQ/L Anion Gap 8 MEQ/L Blood Urea Nitrogen 29 MG/DL Creatinine 1.41 MG/DL Estimat Glomerular Filtration 36 ML/MIN Rate Random Glucose 94 MG/DL Calcium Level 9.3 MG/DL Total Bilirubin 0.3 MG/DL Aspartate Amino Transf 19 U/L (AST/SGOT) Alanine Aminotransferase 21 U/L (ALT/SGPT) Alkaline Phosphatase 117 U/L Total Protein 7.6 GM/DL Albumin 4.0 GM/DL Urine Color LIGHT-YELLOW Urine Turbidity HAZY Urine pH 7.0 Urine Specific Allison 1.008 Urine Protein NEG mg/dL Urine Glucose (UA) NEG mg/dL Urine Ketones NEG mg/dL Urine Occult Blood NEG Urine Nitrite NEG Urine Bilirubin NEG Urine Urobilinogen LESS THAN 2.0 MG/DL Urine Leukocyte Esterase NEG Urine WBC 1 /hpf Urine Amorphous Sediment RARE Microscopic Urinalysis Comment CATH-CULT NOT IND MDM Medical Decision Making Medical Screen Exam Complete: Yes Emergency Medical Condition: Yes Medical Record Reviewed: Yes Interpretation(s) The CT scan as well as plain films of the right hip are negative. Differential Diagnosis Hip fracture, contusion hip, fracture pelvis, anemia, electrolyte disorder Narrative Course The patient still cannot walk so she will be admitted to the [facility] service for 23 hour observation. Impression: Arthritis right hip Diagnosis Primary Impression: Arthritis of right hip Additional Impression: Inability to ambulate due to hip Admitting Information Admitting Physician Requests: Observation Mark Dueñas MD July 02, 2016 19:18
--- NOTE | 2016-07-02 19:56 | RADRPT ---
EXAM DATE/TIME: 07/02/2016 19:30 [facility] COMPARISON: CT ABDOMEN & PELVIS W CONTRAST, October 12, 2013, 13:36. INDICATIONS : Right hip pain for 24 hours with no known injury MEDICAL HISTORY : None. SURGICAL HISTORY : None. ENCOUNTER: Initial ACUITY: 1 day PAIN SCORE: 7/10 LOCATION: Right entire hip FINDINGS: 3 views of the pelvis and right hip show osteopenia. Old trauma involving the superior and inferior p ubic rami on the right. No acute fracture or dislocation. Bilateral hip osteoarthritis is mild. Soft tissues are unremarkable. CONCLUSION: 1. No acute abnormality. 2. Old trauma involving the right pelvis. Eric Mendez Jr., MD on July 02, 2016 at 19:53 Board Certified Radiologist. This report was verified electronically.
[2016-07-02 20:14] LABS: BASOPHIL # 0.1 TH/MM3 (0-0.2); BASOPHIL % 0.7 % (0.0-2.0); EOSINOPHIL # 0.3 TH/MM3 (0-0.4); EOSINOPHIL % 3.3 % (0.0-4.0); HEMATOCRIT 38.7 % (35.0-46.0); LYMPH % 30.4 % (9.0-44.0); LYMPHOCYTE # 2.7 TH/MM3 (1.0-4.8); MEAN CELL VOLUME 92.7 FL (80.0-100.0); MEAN CORPUSCULAR HEMOGLOBIN 30.9 PG (27.0-34.0); MEAN CORPUSCULAR HGB CONC 33.4 % (32.0-36.0); MONO % 9.8 % (0.0-8.0); NEUT % 55.8 % (16.0-70.0); PLATELET COUNT 291 TH/MM3 (150-450); RED BLOOD COUNT 4.18 MIL/MM3 (4.00-5.30); RED CELL DISTRIBUTION WIDTH 13.6 % (11.6-17.2); WHITE BLOOD COUNT 8.9 TH/MM3 (4.0-11.0)
[2016-07-02 20:17] LABS: HEMO FLAGS AUTO DIFF
[2016-07-02 20:43] LABS: ALKALINE PHOSPHATASE 117 U/L (45-117); ALT (GPT) 21 U/L (10-53); ANION GAP 8 MEQ/L (5-15); AST (GOT) 19 U/L (15-37); BICARBONATE 29.1 MEQ/L (21.0-32.0); BLOOD UREA NITROGEN 29 MG/DL (7-18); CHLORIDE 103 MEQ/L (98-107); GLOMERULAR FILTRATION RATE 36 ML/MIN (>89); SODIUM (NA) 140 MEQ/L (136-145); TOTAL BILIRUBIN ADULT 0.3 MG/DL (0.2-1.0)
[2016-07-02 20:47] LABS: SCAN/DIFF AUTO DIFF CONFIRMED
[2016-07-02 20:48] LABS: POTASSIUM 4.3 MEQ/L (3.5-5.1)
[2016-07-02 21:00] VITALS: BP 157/89; PULSE 81; RESP 18; O2SAT 97
--- NOTE | 2016-07-02 21:47 | RADRPT ---
EXAM DATE/TIME: 07/02/2016 20:57 [facility] COMPARISON: No previous studies available for comparison. INDICATIONS : Multiple falls, pain and weakness to right hip RADIATION DOSE: 23.15 CTDIvol (mGy) MEDICAL HISTORY : None SURGICAL HISTORY : None ENCOUNTER: Initial ACUITY: 1 day PAIN SCALE: 8/10 LOCATION: Right Hip TECHNIQUE: Volumetric scanning of the hip was performed. Using automated exposure control and adjustment of the mA and/or kV according to patient size, radiation dose was kept as low as reasonably achievable to o btain optimal diagnostic quality images. FINDINGS: Old fractures with lack of union again seen involving the superior and inferior pubic rami on the rig ht. There is partial fusion of the superior pubic ramus fracture. No acute fractures or dislocations. Mild osteoarthritis of the hip. Degenerative changes of the lower lumbar spine. Sigmoid diverticulos is without acute inflammation. Calcified plaque involving the aorta and inflow vessels. CONCLUSION: 1. Old trauma as detailed above. 2. No acute abnormality. 3. Mild right hip osteoarthritis. Eric Mendez Jr., MD on July 02, 2016 at 21:43 Board Certified Radiologist. This report was verified electronically.
[2016-07-02] MEDS ORDERED: SODIUM CHLOR 0.9% 1000 ML INJ 1,000 ML IV SCH (22:06)
--- NOTE | 2016-07-02 22:09 | HHI.HP ---
HPI [facility] Physician Jose Holloway MD Admission Diagnosis right hip pain, following spells Diagnoses: (1) Recurrent falls Diagnosis: Principal (2) Right hip pain Diagnosis: Principal (3) Renal insufficiency Diagnosis: Principal (4) HTN (hypertension) Diagnosis: Principal Travel History International Travel<30 Days: No Contact w/Intl Traveler <30 Da: No Traveled to Known Affected Are: No History of Present Illness This is a 75-year-old female with a PMH of Anxiety, Depression, HTN, Hyperlipidemia, GERD and Diet Controlled DM who presented to the ER with complaints of right hip pain after fall. Per patient had complaints acute right hip pain 2 days ago, heard sudden "snap" and had immediate complaints of right hip pain. No fall or injury at that time. Since then, however, she's had ongoing right hip pain w/ multiple falls. Unable to walk at this time due to pain. On arrival, BP 165/104, HR 77, O2 sat 99% on RA, Afebrile. CBC unremarkable. Creatinine 1.41, previously 1.30 on 05/27/16. UA negative. Hip X -ray with no acute findings, old trauma involving right pelvis. CT Lower Extremity with old trauma, no acute findings. Pt unable to ambulate at this time, unsafe discharge home. Review of Systems Except as stated in HPI: all other systems reviewed are Neg ROS: 14 point review of systems otherwise negative. Past Family Social History Past Medical History PMH: Anxiety, Depression, HTN, Hyperlipidemia, GERD and Diet Controlled DM Past Surgical History PAST SURGICAL HISTORY: Small Bowel Resection, Appendectomy, Gastric Banding, C- section, CABG, Hysterectomy, Bilateral Knee Replacement with Dental Extraction, Tonsillectomy Allergies: Coded Allergies: Latex (Verified Allergy, Intermediate, HIVES, 07/02/16) Family History PAST FAMILY HISTORY: Reviewed. No h/o DM or CAD Social History PAST SOCIAL HISTORY: Negative for alcohol, tobacco or drugs. Physical Exam Vital Signs Vital Signs Date Time Temp Pulse Resp B/P Pulse Ox O2 Delivery O2 Flow Rate FiO2 07/02/16 19:17 18 99 07/02/16 18:52 76 17 99 Room Air 07/02/16 18:46 97.8 77 18 165/104 99 Physical Exam PE: GENERAL: Pleasant elderly female in no acute distress. HEENT: PERRLA, EOMI. No scleral icterus or conjunctival pallor. No lid lag or facial droop. CARDIOVASCULAR: Regular rate and rhythm. No obvious murmurs to auscultation. No chest tenderness to palpation. RESPIRATORY: No obvious rhonchi or wheezing. Clear to auscultation. Breath sounds equal bilaterally. GASTROINTESTINAL: Abdomen soft, non-tender, nondistended. BS normal. MUSCULOSKELETAL: Extremities without clubbing, cyanosis, or edema. No obvious deformities. Mild decreased ROM of RLE due to pain. NEUROLOGICAL: Awake, alert and oriented x4. No focal neurologic deficits. Moving both upper and lower extremities spontaneously. Laboratory Laboratory Tests Test 07/02/16 18:50 White Blood Count 8.9 Red Blood Count 4.18 Hemoglobin 12.9 Hematocrit 38.7 Mean Corpuscular Volume 92.7 Mean Corpuscular Hemoglobin 30.9 Mean Corpuscular Hemoglobin 33.4 Concent Red Cell Distribution Width 13.6 Platelet Count 291 Mean Platelet Volume 9.4 Neutrophils (%) (Auto) 55.8 Lymphocytes (%) (Auto) 30.4 Monocytes (%) (Auto) 9.8 Eosinophils (%) (Auto) 3.3 Basophils (%) (Auto) 0.7 Neutrophils # (Auto) 5.0 Lymphocytes # (Auto) 2.7 Monocytes # (Auto) 0.9 Eosinophils # (Auto) 0.3 Basophils # (Auto) 0.1 CBC Comment AUTO DIFF Differential Comment AUTO DIFF CONFIRMED Sodium Level 140 Potassium Level 4.3 Chloride Level 103 Carbon Dioxide Level 29.1 Anion Gap 8 Blood Urea Nitrogen 29 Creatinine 1.41 Estimat Glomerular Filtration 36 Rate Random Glucose 94 Calcium Level 9.3 Total Bilirubin 0.3 Aspartate Amino Transf 19 (AST/SGOT) Alanine Aminotransferase 21 (ALT/SGPT) Alkaline Phosphatase 117 Total Protein 7.6 Albumin 4.0 Result Diagram: 07/02/16184907/02/161849 Assessment and Plan Problem List: (1) Recurrent falls ICD Code: R29.6 Status: Acute (2) Right hip pain ICD Code: M25.551 Status: Acute (3) Renal insufficiency ICD Code: N28.9 Status: Acute (4) HTN (hypertension) ICD Code: I10 Status: Chronic Assessment and Plan A/P: 1. Recurrent Falls: no LOC or head trauma, reports unstable gait secondary to right hip pain. Hip/Pelvis X-ray w/ no acute findings, CT Lower Extremity w/ old trauma, no acute findings, images reviewed by me. Unsafe discharge home at this time as pt unable to ambulate independently. Admit for Observation, PT for eval/tx, Case Management for assistance w/ discharge/placement as needed. 2. Right Hip Pain: secondary to above, no injuries as noted in imaging, continue analgesics as needed. 3. Renal Insufficiency: Chronic. Creatinine 1.41, previously 1.30 on . U/a negative. IVF for hydration, repeat labs in am. 4. HTN: BP 160's on arrival, likely compounded by pain complaints. Resume home Metoprolol, monitor BP. 5. DVT Prophylaxis: SCD/Teds. 6. Social work for d/c planning as needed. 7. Case discussed w/ ER physician at length. Desiree Love MD July 02, 2016 22:08
[2016-07-02] MEDS ORDERED: ACETAMINOPHEN 325 MG TAB PO PRN (22:15)
[2016-07-02] MEDS ORDERED: BISACODYL 10 MG SUPP RECTAL PRN (22:15)
[2016-07-02] MEDS ORDERED: MAGNESIUM HYDROXIDE SUSP 30 ML CUP PO PRN (22:15)
[2016-07-02] MEDS ORDERED: ONDANSETRON HCL 4 MG/2 ML VIAL IVP PRN (22:15)
[2016-07-02] MEDS ORDERED: LACTULOSE SYRUP 20 GM/30 ML CUP PO PRN (22:15)
[2016-07-02] MEDS ORDERED: SODIUM CHLORIDE 0.9% FLUSH 10 ML FLUSH IV FLUSH PRN (22:15)
[2016-07-02] MEDS ORDERED: KETOROLAC TROMETHAMINE 30 MG/ML (IVP) VIAL IV PUSH ONE (22:15)
[2016-07-02] MEDS ORDERED: SENNOSIDES 8.6 MG TAB PO PRN (22:15)
[2016-07-02 22:17] LABS: BLOOD, URINE NEG (NEG); GLUCOSE,URINE NEG (NEG); KETONE, URINE NEG (NEG); NITRITE,URINE NEG (NEG); URINE COLOR LIGHT-YELLOW (YELLW/STRAW)
[2016-07-02 22:21] LABS: COMMENT (UR) CATH-CULT NOT IND; CULTURE IF INDICATED CATH CULTURE NOT IND
[2016-07-02 23:10] VITALS: BP 187/86; PULSE 71; RESP 18; TEMP 97.8; O2SAT 95
[2016-07-02] MEDS: MORPHINE SULFATE 4 MG/ML INJ IV PRN (23:17)
[2016-07-03 05:13] VITALS: BP 143/71; PULSE 64; RESP 18; TEMP 97.6; O2SAT 92
--- NOTE | 2016-07-03 08:17 | HHI.PR ---
Subjective Remarks Follow-up for right hip pain. The patient reports that she is comfortable while lying in the bed. She states that she does have discomfort in her right hip joint whenever she moves it. She denies any recent injury. She does state that she had pelvis fractures 3 years ago. She does follow with an orthopedic doctor, Dr. Staples, in [place]. She states that the pain medicine does help some. She states that she is normally very independent at home, but does have friends that can help her out if needed. She states that she has an old walker from when she had knee surgery in the past. She would like to go home if possible once able. Addendum 1045: Physical therapist reported that the patient was significantly dizzy when standing. The patient states that she's been having dizziness with standing for the past 2 days. Also patient reports that she's had right facial numbness since this morning. She's never had anything like this before. She states her previous stroke she had weakness. She denies any weakness at this time. She denies any other paresthesias. She denies any back pain. Objective Vitals Vital Signs Date Time Temp Pulse Resp B/P Pulse Ox O2 Delivery O2 Flow Rate FiO2 07/03/16 05:13 97.6 64 18 143/71 92 07/03/16 01:07 18 07/02/16 23:10 97.8 71 18 187/86 95 07/02/16 21:00 81 18 157/89 97 Room Air 07/02/16 19:17 18 99 07/02/16 18:52 76 17 99 Room Air 07/02/16 18:46 97.8 77 18 165/104 99 Result Diagram: 07/02/16184907/02/161849 Imaging Last Impressions Hip and Pelvis X-Ray 07/02/16 1913 Signed Impressions: Service Date/Time: Saturday, July 02, 2016 19:30 - CONCLUSION: 1. No acute abnormality. 2. Old trauma involving the right pelvis. Eric Mendez Jr., MD Lower Extremity CT 07/02/16 0000 Signed Impressions: Service Date/Time: Saturday, July 02, 2016 20:57 - CONCLUSION: 1. Old trauma as detailed above. 2. No acute abnormality. 3. Mild right hip osteoarthritis. Eric Mendez Jr., MD Objective Remarks GENERAL: Well-developed well-nourished. In no acute distress. SKIN: Warm and dry. No lesions noted. HEENT: Normocephalic. Pupils equal and round. Mucous membranes pink and moist. CARDIOVASCULAR: Regular rate and rhythm. No murmur appreciated. RESPIRATORY: No accessory muscle use. Clear to auscultation. Breath sounds equal bilaterally. GASTROINTESTINAL: Abdomen soft, non-tender, nondistended. Bowel sounds x4. MUSCULOSKELETAL: No obvious deformities. No clubbing or cyanosis. No edema. Right hip with no TTP, pain with ROM. NEUROLOGICAL: Awake and alert. No focal neurological deficits. Moves upper and lower extremities spontaneously. Normal speech. Strength 5/5. No facial asymmetry. PSYCHIATRIC: Appropriate mood and affect; insight and judgment normal. A/P Problem List: (1) Recurrent falls ICD Code: R29.6 Status: Acute (2) Right hip pain ICD Code: M25.551 Status: Acute (3) Renal insufficiency ICD Code: N28.9 Status: Chronic (4) HTN (hypertension) ICD Code: I10 Status: Chronic Assessment and Plan 75-year-old female with a PMH of Anxiety, Depression, HTN, Hyperlipidemia, GERD and Diet Controlled DM who presented with right hip pain and falls Recurrent Falls: Patient reports orthostatic dizziness. Hip and pelvis imaging as below. Pain control with oral [place] and IV morphine. PT/OT. Case Management consult. Check orthostatic vital signs. Right Hip Pain: Suspect secondary to mild arthritis seen on imaging. Reviewed: Hip and pelvis x-ray with no acute abnormality, old pelvis fracture. Hip CT with no acute abnormality, mild right hip osteoarthritis, old pelvis fracture. -Continue conservative therapy with PT and pain control CKD stage III: Creatinine 1.41, previously 1.30 on 05/27/16. Appears stable. Follow-up BMP. HTN: BP was a bit elevated on admission, likely compounded by pain complaints. Continue home Metoprolol, monitor BP. Facial paresthesias: No focal neuro deficits on exam. Check head CT. Consider additional imaging vs neuro consult. Check B12 and TSH. Neuro checks. Continue aspirin. Other chronic medical conditions including depression, HLD, CHANI, GERD: Stable at this time will continue home medications as indicated. DVT Prophylaxis: SCD/Teds. Discharge Planning Patient declines placement. Follow-up PT/OT recommendations. Likely DC with HHC when pain is better controlled and patient ambulating better. Problem Qualifiers (1) HTN (hypertension): Qualified Code: I10 - Essential hypertension Nitish Caban July 03, 2016 08:17
[2016-07-03 09:02] LABS: AUTOMATED NEUTROPHIL # 3.2 TH/MM3 (1.8-7.7); BASOPHIL # 0.1 TH/MM3 (0-0.2); BASOPHIL % 0.8 % (0.0-2.0); EOSINOPHIL # 0.3 TH/MM3 (0-0.4); EOSINOPHIL % 4.4 % (0.0-4.0); HEMO FLAGS DIFF FINAL; LYMPH % 42.3 % (9.0-44.0); LYMPHOCYTE # 3.1 TH/MM3 (1.0-4.8); MEAN CELL VOLUME 93.8 FL (80.0-100.0); MEAN CORPUSCULAR HEMOGLOBIN 30.4 PG (27.0-34.0); MEAN CORPUSCULAR HGB CONC 32.4 % (32.0-36.0); MONO % 9.1 % (0.0-8.0); NEUT % 43.4 % (16.0-70.0); PLATELET COUNT 245 TH/MM3 (150-450); RED BLOOD COUNT 3.95 MIL/MM3 (4.00-5.30); RED CELL DISTRIBUTION WIDTH 13.9 % (11.6-17.2); WHITE BLOOD COUNT 7.4 TH/MM3 (4.0-11.0)
[2016-07-03 09:44] LABS: ALKALINE PHOSPHATASE 96 U/L (45-117); ALT (GPT) 18 U/L (10-53); ANION GAP 10 MEQ/L (5-15); AST (GOT) 13 U/L (15-37); BICARBONATE 25.9 MEQ/L (21.0-32.0); BLOOD UREA NITROGEN 29 MG/DL (7-18); CHLORIDE 105 MEQ/L (98-107); GLOMERULAR FILTRATION RATE 37 ML/MIN (>89); POTASSIUM 3.9 MEQ/L (3.5-5.1); SODIUM (NA) 141 MEQ/L (136-145); TOTAL BILIRUBIN ADULT 0.4 MG/DL (0.2-1.0)
[2016-07-03 10:08] VITALS: BP 150/76; PULSE 80; RESP 18; TEMP 97.8; O2SAT 96
[2016-07-03] MEDS: DOCUSATE SODIUM 50 MG/SENNA 8.6 MG TAB PO SCH ×2 (10:11→20:08)
[2016-07-03] MEDS: SODIUM CHLORIDE 0.9% FLUSH 10 ML FLUSH IV FLUSH SCH ×2 (10:11→20:08)
[2016-07-03] MEDS: METOPROLOL TARTRATE 25 MG TAB PO SCH ×2 (10:11→20:08)
[2016-07-03] MEDS: PANTOPRAZOLE SOD 40 MG DELAYED RELEASE TAB PO SCH (10:11)
[2016-07-03] MEDS: FERROUS SULFATE 325 MG (65 MG ELEMENTAL IRON) TAB PO SCH (10:11)
[2016-07-03] MEDS: buPROPion HCL 100 MG SUSTAINED RELEASE TAB PO SCH (10:12)
[2016-07-03] MEDS: FLUoxetine HCL 20 MG CAP PO SCH (10:12)
--- NOTE | 2016-07-03 11:59 | RADRPT ---
EXAM DATE/TIME: 07/03/2016 11:25 [facility] COMPARISON: CT BRAIN W/O CONTRAST, August 19, 2011, 23:15. CT BRAIN W/O CONTRAST, July 06, 2013, 14:25. INDICATIONS : Altered mental status; generalized weakness. RADIATION DOSE: 33.00 CTDIvol (mGy) MEDICAL HISTORY : Stroke. Cardiovascular disease SURGICAL HISTORY : None. ENCOUNTER: Initial ACUITY: 1 day PAIN SCALE: 4/10 LOCATION: cranial TECHNIQUE: Multiple contiguous axial images were obtained of the head. Using automated exposure control and adj ustment of the mA and/or kV according to patient size, radiation dose was kept as low as reasonably a chievable to obtain optimal diagnostic quality images. FINDINGS: CEREBRUM: There is mild cerebral atrophy. Ventricles are normal in size. There is mild periventricular white ma tter low attenuation. No evidence of midline shift, mass lesion, hemorrhage or acute infarction. No extra-axial fluid collections are seen. POSTERIOR FOSSA: The cerebellum and brainstem are intact. The 4th ventricle is midline. The cerebellopontine angle i s unremarkable. EXTRACRANIAL: The visualized portion of the orbits is intact. SKULL: The calvaria is intact. No evidence of skull fracture. CONCLUSION: 1. No acute intracranial abnormality is identified. 2. Nonacute findings include mild atrophy and mild periventricular white matter low attenuation joseline cteristic of chronic microvascular ischemia. Prabhakar Lerma MD on July 03, 2016 at 11:54 Board Certified Radiologist. This report was verified electronically.
[2016-07-03 12:33] VITALS: BP_SYST 167; BP_SYST 183; BP_SYST 192; BP_DIAS 82; BP_DIAS 94; BP_DIAS 97; PULSE 66; RESP 18; TEMP 98; O2SAT 96
--- NOTE | 2016-07-03 15:28 | EKG ---
Date Performed: 07/02/2016 Time Performed: 19:44:29 PTAGE: 75 years EKG: Sinus rhythm BORDERLINE LEFT AXIS DEVIATION LEFT VENTRICULAR HYPERTROPHY AND ST-T CHANGE ABNORMAL ECG Since PREVIOUS TRACING 06/22/2016, PVCs no longer present, otherwise no significant change. MO EVIOUS TRACIN06/22/2016 11.15 DOCTOR: Mario Fleming Interpretating Date/Time 07/03/2016 15:27:16
[2016-07-03 16:29] VITALS: BP_SYST 143; BP_SYST 167; BP_DIAS 67; BP_DIAS 77; PULSE 76; RESP 18; TEMP 98; O2SAT 95
[2016-07-03] MEDS: ATORVASTATIN 20 MG TAB PO SCH (20:08)
[2016-07-03] MEDS: MORPHINE SULFATE 4 MG/ML INJ IV PRN (20:09)
[2016-07-03 20:26] VITALS: BP 127/75; PULSE 67; RESP 18; TEMP 98.5; O2SAT 96
[2016-07-03] MEDS: ACETAMINOPHEN/HYDROcodone 325 MG/5 MG TAB PO PRN (22:12)
[2016-07-04] VITALS (8 sets, daily range): BP systolic 128–188; BP diastolic 61–86; PULSE 56–68; RESP 16–23; TEMP 96.2–98.5; O2SAT 91–97
[2016-07-04 07:46] LABS: FREE T3 1.94 PG/ML (2.18-3.98); FREE T4 0.81 NG/DL (0.76-1.46)
[2016-07-04 10:28] LABS: HDL CHOLESTEROL 81.2 MG/DL (40.0-60.0); LDL CHOLESTEROL 54 MG/DL (0-99)
[2016-07-04] MEDS: PANTOPRAZOLE SOD 40 MG DELAYED RELEASE TAB PO SCH (11:17)
[2016-07-04] MEDS: METOPROLOL TARTRATE 25 MG TAB PO SCH ×2 (11:17→20:04)
[2016-07-04] MEDS: FERROUS SULFATE 325 MG (65 MG ELEMENTAL IRON) TAB PO SCH (11:17)
[2016-07-04] MEDS: buPROPion HCL 100 MG SUSTAINED RELEASE TAB PO SCH (11:17)
[2016-07-04] MEDS: DOCUSATE SODIUM 50 MG/SENNA 8.6 MG TAB PO SCH ×2 (11:17→20:04)
[2016-07-04] MEDS: FLUoxetine HCL 20 MG CAP PO SCH (11:17)
[2016-07-04] MEDS: SODIUM CHLORIDE 0.9% FLUSH 10 ML FLUSH IV FLUSH SCH ×2 (11:18→20:33)
[2016-07-04] MEDS: ACETAMINOPHEN/HYDROcodone 325 MG/5 MG TAB PO PRN ×2 (11:20→21:45)
--- NOTE | 2016-07-04 11:50 | HHI.PR ---
Subjective Remarks Follow-up for weakness. The patient states that she continues to be weak, especially on her right side. She states that she has had a headache today. She denies any speech or swallowing difficulties. She denies any pain with movement of her right hip, but does complain of pain when she tries to bear weight. She states that she has been getting out of bed to use the bedside commode, and continues to complain of dizziness whenever she sits or stands up. She reports that the right facial numbness seems to be improving. She denies any back pain. Objective Vitals Vital Signs Date Time Temp Pulse Resp B/P Pulse Ox O2 Delivery O2 Flow Rate FiO2 07/04/16 08:46 96.2 68 18 128/62 96 07/04/16 06:47 143/80 07/04/16 00:11 98.0 57 18 187/81 91 07/03/16 20:26 98.5 67 18 127/75 96 07/03/16 16:29 98.0 76 18 167/77 95 07/03/16 12:33 98.0 66 18 192/82 96 183/94 167/97 I/O 07/03/16 07/03/16 07/03/16 07/04/16 07/04/16 07/04/16 07:00 15:00 23:00 07:00 15:00 23:00 Intake Total 360 ml Balance 360 ml Intake Oral 360 ml # Voids 1 2 1 1 # Bowel Movements 1 Result Diagram: 07/03/16 0813 07/03/16 0813 Imaging Last Impressions Head CT 07/03/16 1101 Signed Impressions: Service Date/Time: Sunday, July 03, 2016 11:25 - CONCLUSION: 1. No acute intracranial abnormality is identified. 2. Nonacute findings include mild atrophy and mild periventricular white matter low attenuation characteristic of chronic microvascular ischemia. Prabhakar Lerma MD Hip and Pelvis X-Ray 07/02/16 1913 Signed Impressions: Service Date/Time: Saturday, July 02, 2016 19:30 - CONCLUSION: 1. No acute abnormality. 2. Old trauma involving the right pelvis. Eric Mendez Jr., MD Lower Extremity CT 07/02/16 0000 Signed Impressions: Service Date/Time: Saturday, July 02, 2016 20:57 - CONCLUSION: 1. Old trauma as detailed above. 2. No acute abnormality. 3. Mild right hip osteoarthritis. Eric Mendez Jr., MD Objective Remarks GENERAL: Well-developed well-nourished. In no acute distress. SKIN: Warm and dry. No lesions noted. HEENT: Normocephalic. Pupils equal and round. Mucous membranes pink and moist. CARDIOVASCULAR: Regular rate and rhythm. No murmur appreciated. RESPIRATORY: No accessory muscle use. Clear to auscultation. Breath sounds equal bilaterally. GASTROINTESTINAL: Abdomen soft, non-tender, nondistended. Bowel sounds x4. MUSCULOSKELETAL: No obvious deformities. No clubbing or cyanosis. No edema. No right hip pain with ROM. Negative straight leg raise bilaterally. NEUROLOGICAL: Awake and alert. No focal neurological deficits. Moves upper and lower extremities spontaneously. Normal speech. Strength 5/5. PSYCHIATRIC: Appropriate mood and affect; insight and judgment normal. A/P Problem List: (1) Recurrent falls ICD Code: R29.6 Status: Acute (2) Right hip pain ICD Code: M25.551 Status: Acute (3) Renal insufficiency ICD Code: N28.9 Status: Chronic (4) HTN (hypertension) ICD Code: I10 Status: Chronic Assessment and Plan 75-year-old female with a PMH of Anxiety, Depression, HTN, Hyperlipidemia, GERD and Diet Controlled DM who presented with right hip pain and falls Recurrent Falls: Likely secondary to orthostatic hypotension.. Hip and pelvis imaging as below. Pain control. PT/OT. Case Management consult. Right Hip Pain: Suspect secondary to mild arthritis seen on imaging. Reviewed: Hip and pelvis x-ray with no acute abnormality, old pelvis fracture. Hip CT with no acute abnormality, mild right hip osteoarthritis, old pelvis fracture. -Continue conservative therapy with PT and pain control with oral [place]. Orthostatic hypertension: Appears euvolemic. Subclinical hypothyroidism. B12 within normal limits. Continue monitor orthostatic vitals. CATY blackwell. Facial paresthesias and reported right-sided weakness: Rule out TIA. No focal neuro deficits on exam. Head CT reviewed with chronic changes, nothing acute. Check carotid ultrasound, lipid panel, hemoglobin A1c. Neuro checks. Continue aspirin. Consult neurology. CKD stage III: Creatinine 1.38, previously 1.30 on 05/27/16. Appears stable. Monitor.. HTN: BP is labile. Caution with orthostasis. Continue home Metoprolol, monitor BP. Other chronic medical conditions including depression, HLD, CHANI, GERD: Stable at this time will continue home medications as indicated. DVT Prophylaxis: SCD/Teds. Discharge Planning Patient declines placement. Hopefully discharge with [facility] when ready. Problem Qualifiers (1) HTN (hypertension): Qualified Code: I10 - Essential hypertension Nitish Caban July 04, 2016 11:50
[2016-07-04] MEDS ORDERED: GLUCAGON 1 MG/ML VIAL OTHER PRN (13:15)
[2016-07-04] MEDS ORDERED: DEXTROSE 50% IN WATER 50 ML VIAL(D50) IV PRN (13:15)
--- NOTE | 2016-07-04 15:45 | RADRPT ---
EXAM DATE/TIME: 07/04/2016 15:00 [facility] COMPARISON: No previous studies available for comparison. INDICATIONS : Transient Ischemic attack. MEDICAL HISTORY : Gastroesophageal reflux disease. Myocardial infarction. Hypercholesterolemia. Thyroid disease. Right hearing loss. Dentures. Head trauma. Cardiac disorders. Coronary artery disease. Anticoagulant therap y. Chest pain. Hypertension. Snoring. Stroke. Ulcer. Hiatal hernia. Arthritis. Diabetes. Claustraphob ia. Depressiom. Anxiety. SURGICAL HISTORY : Tonsillectomy. CABG. Appendectomy. Adenoidectomy. Dental Extract. Cardiac catheterization. Small citlaly l resection. Ceaseran section x 2. Hysterectomy. Tubal ligation. Bilateral knee replacement. ENCOUNTER: Initial ACUITY: 3 days PAIN SCORE: 0/10 LOCATION: Bilateral neck PEAK SYSTOLIC VELOCITIES (cm/sec): ICA/CCA RATIO: Right: 2.1 Left: 1.2 ICA: Right: 116 Left: 150 CCA: Right: 56 Left: 122 ECA: Right: 130 Left: 130 VERTEBRAL: Right: 42 antegrade Left: 62 antegrade Elevated flow velocities and ICA/CCA ratios have been found to correlate with increased degrees of vessel stenosis, calculated as percentage of diameter relative to a normal segment of distal ICA/CCA FINDINGS: RIGHT CAROTID: There is slight elevation of the ICA/CCA ratio on the right suggestive of 50-69% stenosis, although t he peak systolic velocity of the right ICA is not significantly elevated. Outpatient carotid CT may b e helpful for further evaluation of these findings if clinically indicated. Calcified atherosclerotic plaque is noted within the carotid bulb. There is mild elevation of the peak systolic velocity of th e right ECA suggesting 50-69% stenosis. LEFT CAROTID: No significant stenosis is visualized. The waveforms are within normal limits. Calcified atheroscler otic plaque within the carotid bulb. Mild elevation of the peak systolic velocity of the left ICA and ECA suggesting 50-69% stenosis, although the ICA/CCA ratio is not elevated in this range. Again outp atient carotid CT may be helpful for further evaluation. VERTEBRAL ARTERIES: Antegrade flow is seen in both vertebral arteries. MISCELLANEOUS: None. CONCLUSION: Questionable 50-69% stenosis involving the internal carotid arteries bilaterally. Out patient CT of the carotid arteries would be helpful for confirmation if clinically indicated. Thaddeus Mcmillan MD on July 04, 2016 at 15:39 Board Certified Radiologist. This report was verified electronically.
[2016-07-04] MEDS: INSULIN ASPART SUPPLEMENTAL SCALE SQ SCH ×2 (16:48→20:07)
--- NOTE | 2016-07-04 17:39 | MB ---
cc: CORBY GOODEN DATE OF CONSULTATION: 07/04/2016. HISTORY OF PRESENT ILLNESS: 75-year-old right-handed woman with a history of hypertension, hypercholesterolemia, myocardial infarction, CABG. She takes 81 milligrams of aspirin a day. She tells me she has been in and out of the hospital. She had a stroke four years ago. She saw Dr. Greene but she does not know what the symptoms were. Then evidently on of this week she became weak on the right and fell on the floor, had a hard time getting up. Her home health nurse came in on Tuesday and said that they thought that maybe she had a stroke and she was subsequently admitted to the hospital. ALLERGIES: LATEX. MEDICATIONS AT HOME: 1. Wellbutrin SR 100 milligrams a day. 2. Atorvastatin. 3. Metoprolol. 4. Fluoxetine. 5. Protonix. 6. Iron. 7. Aspirin 81 milligrams a day. REVIEW OF SYSTEMS: She denies any history of diabetes, atrial fibrillation, renal, hepatic, or pulmonary disease, thyroid disease, lupus, ulcer, cancer, seizure. SOCIAL HISTORY: She is not a smoker. She occasionally will drink. She lives by herself. FAMILY HISTORY: Negative for cancer or seizure. Positive for stroke in multiple people. PAST MEDICAL HISTORY: [place] [address] Greene, August of 2011; slurred speech, hypersomnolence, right paramedian pontine infarct, put on aspirin and Plavix. PHYSICAL EXAMINATION: VITAL SIGNS: Sinus rhythm on her EKG. She has not been on telemetry. Afebrile. A standing blood pressure was 188/86. NECK: There are no carotid bruits. HEART: Regular rhythm. I do not detect a murmur. NEUROLOGICAL EXAMINATION: Pupils are equal. Visual hollins are full. Extraocular movements intact without nystagmus. Face is symmetric with normal sensation. Tongue was midline. Speech is a little bit slurred. There is a slight right drift. She is ataxic on [id number] on the right. She had normal strength in the left upper and left lower extremity. Right upper extremity was 5-/5. right lower extremity tibialis anterior 5/5. Iliopsoas about 3/5. LABORATORY DATA: CBC is normal. Urinalysis is negative. Basic metabolic profile essentially normal. Creatinine 1.38, hemoglobin A1c 6.8. Liver function tests normal. LDL cholesterol normal. B12 normal. Thyroid slightly off. Coags normal. IMAGING STUDIES: Carotid ultrasound questionable 50% to 69% bilaterally. CT scan of the brain negative. She had an MRA of her neck back in 2011 with 80% stenosis of the right external carotid artery. MRA [place] at that time essentially unremarkable. MRI of the brain at that time showed right lateral pontine infarct. She had an echocardiogram in 2012 that was normal. She had a Holter monitor in 2012 that was normal. IMPRESSION: She has ataxia on the right arm and some weakness in the right leg. I suspect she has had a stroke. RECOMMENDATIONS / PLAN: 1. Will check an MRI of the brain. 2. MRA of the carotids and [place]. 3. I note she is on a statin here. We will start her on 325 of aspirin. If she has had an infarct, will at least switch her over to Plavix. I will be following her with you in the hospital. MD ARGELIA Lara/JANUSZ /5:07 PM /5:22 PM
--- NOTE | 2016-07-04 18:27 | RADRPT ---
EXAM DATE/TIME: 07/04/2016 17:47 [facility] COMPARISON: CT BRAIN W/O CONTRAST, July 03, 2016, 11:25. INDICATIONS : Frequent falls. Right leg weakness. CONTRAST: 20 cc Multihance (gadobenate) IV MEDICAL HISTORY : Renal insufficiency, chronic. Hypertension. SURGICAL HISTORY : CABG Tonsillectomy. Hysterectomy. ENCOUNTER: Initial ACUITY: 1 day PAIN SCORE: 0/10 LOCATION: cranial TECHNIQUE: Multiplanar, multisequence MRI of the brain was performed both prior to and following the administrat ion of paramagnetic contrast. FINDINGS: There is focal signal abnormality within the left basal ganglia and posterior pack radiata consiste nt with acute infarct involving the left middle cerebral artery distribution. Moderate periventricula r and subcortical white matter small vessel ischemic changes are noted bilaterally. There is evidence of old lacunar infarcts involving the right hero, right cerebellar hemisphere and bilateral basal ga nglia. Mild cerebral atrophy is noted. No acute hemorrhage, midline shift or extra-axial fluid collec tions are noted. No abnormal enhancing mass lesion is noted. CONCLUSION: 1. Focal signal abnormality within the left basal ganglia and posterior pack radiata consistent wit h acute infarct involving the left middle cerebral artery distribution. 2. Moderate periventricular and subcortical white matter small vessel ischemic changes bilaterally. 3. Old lacunar infarcts involving the right hero, right cerebellar hemisphere and bilateral basal eri glia. 4. Mild cerebral atrophy. 5. No acute hemorrhage, midline shift or extra-axial fluid collections. 6. No abnormal enhancing mass lesion. Thaddeus Mcmillan MD on July 04, 2016 at 18:21 Board Certified Radiologist. This report was verified electronically.
[2016-07-04] MEDS: ASPIRIN EC 325 MG TABEC PO SCH (18:28)
--- NOTE | 2016-07-04 18:40 | RADRPT ---
EXAM DATE/TIME: 07/04/2016 17:47 [facility] COMPARISON: No previous studies available for comparison. INDICATIONS : Frequent falls. Right leg weakness. MEDICAL HISTORY : Hypertension. Renal insufficiency, chronic. SURGICAL HISTORY : CABG Tonsillectomy. Hysterectomy. ENCOUNTER: Initial ACUITY: 1 day PAIN SCORE: 0/10 LOCATION: Cranial Please note a normal MRA of the brain does not entirely exclude the possibility of a small aneurysm, nor the possibility of distal intracranial vessel disease. TECHNIQUE: 3D time of flight MRA was performed. Source images, multiplanar STS MIP, and 3D volume MIP reconstru ctions were reviewed. FINDINGS: The upper cervical, petrous, cavernous and supraclinoid internal carotid arteries are patent without significant stenosis or occlusion. The A1 and M1 segments are also patent without significant stenos is or occlusion. The middle and anterior cerebral arteries are patent without significant stenosis o r occlusion. There is a patent left posterior communicating artery which fills a diffusely narrowed left posterior cerebral artery. The right posterior cerebral artery is also narrowed but to a lesser degree than the left and is filled via the basilar artery. The uppermost portions of the vertebral arteries and the basilar artery are patent without significant stenosis or occlusion. There is no an eurysm formation. CONCLUSION: 1. No evidence of significant occlusion or stenosis involving the anterior or middle cerebral arteri es. 2. Moderate diffuse narrowing of the left proximal posterior cerebral artery and mild diffuse narrow ing of the right proximal posterior cerebral artery. 3. Patent left posterior communicating artery filling the left posterior cerebral artery. Thaddeus Mcmillan MD on July 04, 2016 at 18:27 Board Certified Radiologist. This report was verified electronically.
--- NOTE | 2016-07-04 18:45 | RADRPT ---
EXAM DATE/TIME: 07/04/2016 17:47 [facility] COMPARISON: MRA CAROTIDS W CONTRAST, August 10, 2011, 17:35. INDICATIONS : Frequent falls, right leg weakness. CONTRAST: 20 cc MultiHance (gadobenate) IV MEDICAL HISTORY : Hypertension. Renal insufficiency, chronic. SURGICAL HISTORY : CABG Hysterectomy. Tonsillectomy. ENCOUNTER: Initial ACUITY: 1 day PAIN SCORE: 0/10 LOCATION: neck Percent stenosis is calculated using the diameter of the stenotic region over the diameter of the nor mal distal internal carotid artery. TECHNIQUE: Bolus infused MRA of the extracranial circulation was performed using a neurovascular coil. Post pro cessing was performed including rotating subvolume maximum intensity projections of each carotid sahara ry, rotating full volume maximum intensity projections of both carotid arteries, sagittal and coronal sliding thin slab reformations of each carotid artery, and left oblique sliding thin slab reformatio n through the aortic arch to include the origin of the arch branch vessels. FINDINGS: There is a three vessel configuration of the arch. The great vessels are patent. Minimal stenosis i s noted involving the origin of the left common carotid artery. Moderate focal stenosis is noted inv olving the right proximal external carotid artery. The right internal carotid artery is widely paten t. Minimal focal stenosis is noted involving the left proximal internal carotid artery. The left ex ternal carotid artery is widely patent. The vertebral arteries are patent bilaterally. CONCLUSION: 1. Moderate focal stenosis involving the right proximal external carotid artery. 2. Minimal focal stenosis involving the left proximal internal carotid artery and left proximal comm on carotid artery at the arch. Thaddeus Mcmillan MD on July 04, 2016 at 18:37 Board Certified Radiologist. This report was verified electronically.
[2016-07-04] MEDS ORDERED: GADOBENATE DIM PF 529 MG/ML 20ML VIAL (for RAD MRI) IV ONE (19:01)
[2016-07-04] MEDS: ATORVASTATIN 20 MG TAB PO SCH (20:04)
[2016-07-04 21:56] LABS: CREATINE KINASE 67 U/L (26-192)
[2016-07-05] VITALS (10 sets, daily range): BP systolic 128–188; BP diastolic 67–89; PULSE 54–69; RESP 16–18; TEMP 95.5–98; O2SAT 94–97
[2016-07-05] MEDS: INSULIN ASPART SUPPLEMENTAL SCALE SQ SCH ×4 (06:00→20:18)
[2016-07-05] MEDS: FLUoxetine HCL 20 MG CAP PO SCH (08:26)
[2016-07-05] MEDS: DOCUSATE SODIUM 50 MG/SENNA 8.6 MG TAB PO SCH ×2 (08:26→20:18)
[2016-07-05] MEDS: PANTOPRAZOLE SOD 40 MG DELAYED RELEASE TAB PO SCH (08:26)
[2016-07-05] MEDS: FERROUS SULFATE 325 MG (65 MG ELEMENTAL IRON) TAB PO SCH (08:27)
[2016-07-05] MEDS: SODIUM CHLORIDE 0.9% FLUSH 10 ML FLUSH IV FLUSH SCH ×2 (08:27→20:18)
[2016-07-05] MEDS: METOPROLOL TARTRATE 25 MG TAB PO SCH (08:27)
[2016-07-05] MEDS: buPROPion HCL 100 MG SUSTAINED RELEASE TAB PO SCH (08:27)
[2016-07-05] MEDS: ASPIRIN EC 325 MG TABEC PO SCH (08:27)
[2016-07-05] MEDS: ACETAMINOPHEN/HYDROcodone 325 MG/5 MG TAB PO PRN (08:27)
--- NOTE | 2016-07-05 08:34 | PD.VS.CON ---
History of Present Illness Chief Complaint: R sided weakness Consult Requested by: ED History of Present Illness 75 yo female who developed R sided weakness on Tue - she noted that her R "hip gave out" and she had R hand numbness. She thinks that the R hand is back to normal but doesn't know about the hip because of not testing it as of yet. At the time of her acute R hip pain, she notes that she heard a "pop". Radiological work-up showed only old trauma, with nothing acute. She has a vague history of a "stroke" about 4 years ago but doesn't think any intervention was performed at that time. Her atherosclerotic risk factors include HTN, hypercholesterolemia, DM, and CAD. Past/Family/Social History Past Medical History HTN XOL GERD DM Depression/anxiety CAD OA Past Surgical History CABG B knee replacements appy gastric banding C section Social History no tobacco Family History NC Home Medications Active Scripts Bupropion HCl ER 12 HR (Wellbutrin SR 12 HR)100 Mg [id number] Mg PO DAILY #30 TAB Ref 0 Prov:Garret Ngo MD 05/27/16 Atorvastatin 20 Mg Tab20 Mg PO HS #30 TAB Ref 0 Prov:Garret Ngo MD 05/27/16 Metoprolol Tartrate 25 Mg Tab25 Mg PO BID #30 TAB Ref 0 Prov:Garret Ngo MD 05/27/16 Reported Medications Fluoxetine 20 Mg Hyldect45 Mg PO DAILY #30 CAP Ref 0 07/02/16 Pantoprazole (Protonix)40 Mg Tab40 Mg PO DAILY #30 TAB Ref 0 07/02/[address] 324 Mg Xjuqo633 Mg PO DAILY #30 TAB Ref 0 07/02/16 Discontinued Scripts Ciprofloxacin 500 Mg Hlf700 Mg PO BID #10 TAB Ref 0 Prov:Garret Ngo MD 05/27/16 Coded Allergies: Latex (Verified Allergy, Intermediate, HIVES, 07/02/16) Review of Systems Constitutional: DENIES: Fever, Chills Eyes: DENIES: Vision loss Musculoskeletal: COMPLAINS OF: Joint pain Neurologic: COMPLAINS OF: Abnormal gait, Localized weakness, Paresthesias Physical Exam Vitals/I&O Date Time Temp Pulse Resp B/P Pulse Ox O2 Delivery O2 Flow Rate FiO2 07/05/16 08:11 97.7 60 16 162/85 95 Manual Cuff/Auscultation 5/29/17 06:04 98.0 68 18 143/78 97 131/68 128/74 07/05/16 04:21 69 07/04/16 23:39 98.4 61 18 174/81 91 07/04/16 20:02 98.1 62 16 187/84 07/04/16 15:52 98.4 56 23 128/61 97 07/04/16 13:54 178/80 07/04/16 12:12 98.5 61 23 155/75 94 176/74 188/86 07/04/16 08:46 96.2 68 18 128/62 96 07/05/16 07/05/16 07/05/16 07:00 15:00 23:00 Intake Total 600 ml Balance 600 ml Neuro: alert, oriented, no distress HEENT: NC/AT Neck: no JVD Heart: reg rate Lungs: nonlabored breathing Vascular: 2+ R DP, I don't feel a L DP Extremities: 5/5 UE strength, symmetric 4/5 LE strength, symmetric Laboratory Tests Test 07/04/16 07/04/16 09:53 20:44 Hemoglobin A1c 6.8 Triglycerides Level 135 Cholesterol Level 162 LDL Cholesterol 54 HDL Cholesterol 81.2 Cholesterol/HDL Ratio 1.99 Erythrocyte Sedimentation Rate 12 Total Creatine Kinase 67 Troponin I LESS THAN 0.02 Vitamin B12 Level 541 Last 48 hours Impressions Neck Magnetic Resonance Angiography 07/04/161709 Signed Impressions: Service Date/Time: Monday, July 04, 2016 17:47 - CONCLUSION: 1. Moderate focal stenosis involving the right proximal external carotid artery. 2. Minimal focal stenosis involving the left proximal internal carotid artery and left proximal common carotid artery at the arch. Thaddeus Mcmillan MD Head Magnetic Resonance Angiography 07/04/161709 Signed Impressions: Service Date/Time: Monday, July 04, 2016 17:47 - CONCLUSION: 1. No evidence of significant occlusion or stenosis involving the anterior or middle cerebral arteries. 2. Moderate diffuse narrowing of the left proximal posterior cerebral artery and mild diffuse narrowing of the right proximal posterior cerebral artery. 3. Patent left posterior communicating artery filling the left posterior cerebral artery. Thaddeus Mcmillan MD Brain MRI 07/04/161709 Signed Impressions: Service Date/Time: Monday, July 04, 2016 17:47 - CONCLUSION: 1. Focal signal abnormality within the left basal ganglia and posterior pack radiata consistent with acute infarct involving the left middle cerebral artery distribution. 2. Moderate periventricular and subcortical white matter small vessel ischemic changes bilaterally. 3. Old lacunar infarcts involving the right hero, right cerebellar hemisphere and bilateral basal ganglia. 4. Mild cerebral atrophy. 5. No acute hemorrhage, midline shift or extra-axial fluid collections. 6. No abnormal enhancing mass lesion. Thaddeus Mcmillan MD Carotid Artery Ultrasound 07/04/16 0000 Signed Impressions: Service Date/Time: Monday, July 04, 2016 15:00 - CONCLUSION: Questionable 50-69%% stenosis involving the internal carotid arteries bilaterally. Outpatient CT of the carotid arteries would be helpful for confirmation if clinically indicated. Thaddeus Mcmillan MD Head CT 07/03/16 1101 Signed Impressions: Service Date/Time: Sunday, July 03, 2016 11:25 - CONCLUSION: 1. No acute intracranial abnormality is identified. 2. Nonacute findings include mild atrophy and mild periventricular white matter low attenuation characteristic of chronic microvascular ischemia. Prabhakar Lerma MD Assessment and Plan Plan I am not sure if the acute event she had was indeed a CVA - it seems more likely orthopedic in nature. Certainly she has no significant carotid disease by duplex or then by subsequent MRA. The ECA stenosis is of no clinical consequence. I think the best management for her is antiplatelet therapy (already on ASA) and statin therapy (already on atorvastatin). Likely needs PT/rehab. I am happy to see her in my clinic in 6m with repeat carotid duplex, but as she and I talked, I doubt that there is any carotid intervention ever needed for her. Thaddeus Hunter MD FACS layout mechanic [facility] at [facility] [phone] Thaddeus Hunter MD July 05, 2016 08:34
--- NOTE | 2016-07-05 09:46 | HHI.PR ---
Subjective Remarks Follow-up for weakness. The patient complains of right-sided weakness today. She continues to have tingling on the right side of her face. She is agreeable for SNF placement. Objective Vitals Vital Signs Date Time Temp Pulse Resp B/P Pulse Ox O2 Delivery O2 Flow Rate FiO2 07/05/16 08:11 97.7 60 16 162/85 95 Manual Cuff/Auscultation 07/05/16 06:04 98.0 68 18 143/78 97 131/68 128/74 07/05/16 04:21 69 07/04/16 23:39 98.4 61 18 174/81 91 07/04/16 20:02 98.1 62 16 187/84 07/04/16 15:52 98.4 56 23 128/61 97 07/04/16 13:54 178/80 07/04/16 12:12 98.5 61 23 155/75 94 176/74 188/86 I/O 07/04/16 07/04/16 07/04/16 07/05/16 07/05/16 07/05/16 07:00 15:00 23:00 07:00 15:00 23:00 Intake Total 600 ml Balance 600 ml Intake Oral 600 ml # Voids 1 1 6 # Bowel Movements 1 1 Result Diagram: 07/03/1681207/03/16812 Imaging Last Impressions Neck Magnetic Resonance Angiography 07/04/161709 Signed Impressions: Service Date/Time: Monday, July 04, 2016 17:47 - CONCLUSION: 1. Moderate focal stenosis involving the right proximal external carotid artery. 2. Minimal focal stenosis involving the left proximal internal carotid artery and left proximal common carotid artery at the arch. Thaddeus Mcmillan MD Head Magnetic Resonance Angiography 07/04/161709 Signed Impressions: Service Date/Time: Monday, July 04, 2016 17:47 - CONCLUSION: 1. No evidence of significant occlusion or stenosis involving the anterior or middle cerebral arteries. 2. Moderate diffuse narrowing of the left proximal posterior cerebral artery and mild diffuse narrowing of the right proximal posterior cerebral artery. 3. Patent left posterior communicating artery filling the left posterior cerebral artery. Thaddeus Mcmillan MD Brain MRI 07/04/161709 Signed Impressions: Service Date/Time: Monday, July 04, 2016 17:47 - CONCLUSION: 1. Focal signal abnormality within the left basal ganglia and posterior pack radiata consistent with acute infarct involving the left middle cerebral artery distribution. 2. Moderate periventricular and subcortical white matter small vessel ischemic changes bilaterally. 3. Old lacunar infarcts involving the right hero, right cerebellar hemisphere and bilateral basal ganglia. 4. Mild cerebral atrophy. 5. No acute hemorrhage, midline shift or extra-axial fluid collections. 6. No abnormal enhancing mass lesion. Thaddeus Mcmillan MD Carotid Artery Ultrasound 07/04/16 0000 Signed Impressions: Service Date/Time: Monday, July 04, 2016 15:00 - CONCLUSION: Questionable 50-69%% stenosis involving the internal carotid arteries bilaterally. Outpatient CT of the carotid arteries would be helpful for confirmation if clinically indicated. Thaddeus Mcmillan MD Head CT 07/03/16 1101 Signed Impressions: Service Date/Time: Sunday, July 03, 2016 11:25 - CONCLUSION: 1. No acute intracranial abnormality is identified. 2. Nonacute findings include mild atrophy and mild periventricular white matter low attenuation characteristic of chronic microvascular ischemia. Prabhakar Lerma MD Hip and Pelvis X-Ray 07/02/16 1913 Signed Impressions: Service Date/Time: Saturday, July 02, 2016 19:30 - CONCLUSION: 1. No acute abnormality. 2. Old trauma involving the right pelvis. Eric Mendez Jr., MD Lower Extremity CT 07/02/16 0000 Signed Impressions: Service Date/Time: Saturday, July 02, 2016 20:57 - CONCLUSION: 1. Old trauma as detailed above. 2. No acute abnormality. 3. Mild right hip osteoarthritis. Eric Mendez Jr., MD Objective Remarks GENERAL: Well-developed well-nourished. In no acute distress. SKIN: Warm and dry. No lesions noted. HEENT: Normocephalic. Pupils equal and round. Mucous membranes pink and moist. CARDIOVASCULAR: Regular rate and rhythm. No murmur appreciated. RESPIRATORY: No accessory muscle use. Clear to auscultation. Breath sounds equal bilaterally. GASTROINTESTINAL: Abdomen soft, non-tender, nondistended. Bowel sounds x4. MUSCULOSKELETAL: No obvious deformities. No clubbing or cyanosis. No edema. NEUROLOGICAL: Awake and alert. No focal neurological deficits. Moves upper and lower extremities spontaneously. Normal speech. Strength 4/5 on the right and 5 /5 on the left. No facial asymmetry. PSYCHIATRIC: Appropriate mood and affect; insight and judgment fair to normal. A/P Problem List: (1) Recurrent falls ICD Code: R29.6 Status: Acute (2) Right hip pain ICD Code: M25.551 Status: Acute (3) Renal insufficiency ICD Code: N28.9 Status: Chronic (4) HTN (hypertension) ICD Code: I10 Status: Chronic (5) DM (diabetes mellitus) ICD Code: E11.9 Status: Chronic (6) CVA (cerebral vascular accident) ICD Code: I63.9 Status: Acute Assessment and Plan 75-year-old female with a PMH of Anxiety, Depression, HTN, Hyperlipidemia, GERD and Diet Controlled DM who presented with right hip pain and falls Recurrent Falls: Likely secondary to CVA and orthostatic hypotension. Hip and pelvis imaging as below. Pain control. PT/OT. Case Management consult. Needs SNF. Acute CVA: Reviewed: Brain MRI with focal signal abnormality consistent with left MCA infarct. Carotid ultrasound and neck MRA with possible moderate stenosis. -Neurology consulted, workup in progress -Echocardiogram ordered -Holter monitor in place -Aspirin -HOB flat and permissive hypertension -Consult rehabilitation medicine Right Hip Pain: Suspect secondary to mild arthritis seen on imaging. Reviewed: Hip and pelvis x-ray with no acute abnormality, old pelvis fracture. Hip CT with no acute abnormality, mild right hip osteoarthritis, old pelvis fracture. -Continue conservative therapy with PT and pain control with oral [facility]. 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 Subclinical hypothyroidism. B12 within normal limits. Continue monitor orthostatic vitals. CATY blackwell. Diabetes mellitus: Reportedly diet controlled. Random glucoses within normal limits, however hemoglobin A1c is 6.8. Monitor Accu-Cheks. Continue with SSI for now. Hyperlipidemia: Lipid panel reviewed with low LDL and favorable HDL. Continue statin. CKD stage III: Creatinine 1.38, previously 1.30 on 05/27/16. Appears stable. Monitor. HTN: BP is labile. Caution with orthostasis. Holding metoprolol for now and permissive hypertension. Other chronic medical conditions including depression, HLD, CHANI, GERD: Stable at this time will continue home medications as indicated. DVT Prophylaxis: SCD/Teds. Lovenox. Discharge Planning Likely discharge to SNF when arranged, case management consulted. Problem Qualifiers (1) HTN (hypertension): Qualified Code: I10 - Essential hypertension (2) DM (diabetes mellitus): Qualified Code: E11.22 - Type 2 diabetes mellitus with stage 3 chronic kidney disease, without long-term current use of insulin (3) CVA (cerebral vascular accident): Qualified Code: I63.311 - Cerebrovascular accident (CVA) due to thrombosis of right middle cerebral artery Nitish Caban July 05, 2016 09:46
--- NOTE | 2016-07-05 11:05 | HHI.PR ---
Objective Vital Signs Date Time Temp Pulse Resp B/P Pulse Ox O2 Delivery O2 Flow Rate FiO2 07/05/16 10:18 150/89 07/05/16 09:27 18 07/05/16 08:11 97.7 60 16 162/85 95 Manual Cuff/Auscultation 07/05/16 08:00 64 07/05/16 06:04 98.0 68 18 143/78 97 131/68 128/74 07/05/16 04:21 69 07/04/16 23:39 98.4 61 18 174/81 91 07/04/16 20:02 98.1 62 16 187/84 07/04/16 15:52 98.4 56 23 128/61 97 07/04/16 13:54 178/80 07/04/16 12:12 98.5 61 23 155/75 94 176/74 188/86 I/O 07/04/16 07/04/16 07/04/16 07/05/16 07/05/16 07/05/16 07:00 15:00 23:00 07:00 15:00 23:00 Intake Total 600 ml 250 ml Output Total 300 ml Balance 600 ml -50 ml Intake Oral 600 ml 250 ml Output Urine Total 300 ml # Voids 1 1 6 # Bowel Movements 1 1 Result Diagram: 07/03/1681207/03/16812 Objective Remarks ataxic rue and rle rle 4/5 face sym vff Assessment and Plan Assessment and Plan imp mri pos left lacunar cva the left mca may have some dz and i will look at this o/p no cta with cri mra neck neg change to plavix and fish oil i dw her ldl nl fu echo and holter if echo neg ok dc to rehab dc asa in three days Manuel Gomez MD July 05, 2016 11:04
[2016-07-05] MEDS: CLOPIDOGREL 75 MG TAB PO SCH (11:18)
[2016-07-05] MEDS: ENOXAPARIN SODIUM 30 MG/0.3 ML SYRINGE SQ SCH (11:18)
[2016-07-05] MEDS: ATORVASTATIN 20 MG TAB PO SCH (20:17)
[2016-07-05] MEDS ORDERED: ACETAMINOPHEN/HYDROcodone 325 MG/5 MG TAB PO ONE (22:30)
[2016-07-06 04:30] VITALS: BP 180/81; PULSE 67; RESP 18; TEMP 96.9; O2SAT 95
[2016-07-06] MEDS: INSULIN ASPART SUPPLEMENTAL SCALE SQ SCH ×3 (06:26→16:00)
[2016-07-06 08:00] VITALS: BP 204/89; PULSE 61; RESP 16; TEMP 96.9; O2SAT 96
[2016-07-06] MEDS ORDERED: ENALAPRILAT 1.25 MG/ML VIAL IV PUSH PRN (08:45)
--- NOTE | 2016-07-06 08:51 | HHI.PR ---
Objective Vital Signs Date Time Temp Pulse Resp B/P Pulse Ox O2 Delivery O2 Flow Rate FiO2 07/06/16 04:30 96.9 67 18 180/81 95 07/05/16 23:30 96.7 65 18 174/72 95 188/82 185/88 07/05/16 20:00 59 07/05/16 19:40 97.2 60 18 136/75 94 07/05/16 15:43 97.1 55 17 146/67 94 07/05/16 11:23 95.5 54 17 159/67 95 07/05/16 10:18 150/89 07/05/16 09:27 18 I/O 07/05/16 07/05/16 07/05/16 07/06/16 07/06/16 07/06/16 07:00 15:00 23:00 07:00 15:00 23:00 Intake Total 600 ml 650 ml 360 ml 240 ml Output Total 300 ml Balance 600 ml 350 ml 360 ml 240 ml Intake Oral 600 ml 650 ml 360 ml 240 ml Output Urine Total 300 ml # Voids 6 1 3 3 # Bowel Movements 0 1 0 Result Diagram: 07/03/1613 07/03/1613 Objective Remarks ataxic rue and rle a little better rle 4+/5 face sym vff Assessment and Plan Assessment and Plan imp mri pos left lacunar cva the left mca may have some dz and i will look at this o/p no cta with cri mra neck neg change to plavix and fish oil i dw her ldl nl fu echo and holter still pend if echo neg ok dc to rehab today dc asa in three days stable overnoc Manuel Chowdhury MD July 06, 2016 08:51
[2016-07-06] MEDS: ASPIRIN EC 325 MG TABEC PO SCH (09:08)
[2016-07-06] MEDS: FLUoxetine HCL 20 MG CAP PO SCH (09:08)
[2016-07-06] MEDS: buPROPion HCL 100 MG SUSTAINED RELEASE TAB PO SCH (09:08)
[2016-07-06] MEDS: FERROUS SULFATE 325 MG (65 MG ELEMENTAL IRON) TAB PO SCH (09:08)
[2016-07-06] MEDS: PANTOPRAZOLE SOD 40 MG DELAYED RELEASE TAB PO SCH (09:08)
[2016-07-06] MEDS: DOCUSATE SODIUM 50 MG/SENNA 8.6 MG TAB PO SCH (09:08)
[2016-07-06] MEDS: CLOPIDOGREL 75 MG TAB PO SCH (09:08)
[2016-07-06] MEDS: SODIUM CHLORIDE 0.9% FLUSH 10 ML FLUSH IV FLUSH SCH (09:09)
[2016-07-06 11:10] LABS: RAPID PLASMA REAGIN SCREEN NON-REACTIVE (NON-REACTVE)
--- NOTE | 2016-07-06 11:29 | HM ---
Date Performed: 07/04/2016 Time Performed: 20:15:00 HOOKUP DATE: 07/04/16 08:15:00 PM Sun ANALYSIS START TIME: 07/04/2016 8:20:00 PM ANALYSIS END TIME: 07/05/2016 7:53:03 PM PATIENT AGE: 75 PATIENT HEIGHT PATIENT WEIGHT DRUG LIST PATIENT DIAGNOSIS: falling spells TEST NARRATIVE: The patient's average heart rate was 58 BPM. No episodes of tachycardia wer e noted. Heart rates less than 50 BPM were noted 7% of the time. No pauses exceeding 2.0 seconds were noted. 111 ventricular ectopics, which represented < 1% of the total beat count, were noted . The highest ventricular ectopic frequency occurred from 03:00 AM to 04:00 AM Mon. During this dennise e 20 VE(s) occurred. Ventricular ectopics were observed as 109 isolated beat(s) and as 1 couplet(s). No runs were noted. 41 supraventricular ectopics, which represented < 1% of the total beat coun t, were noted. The highest supraventricular ectopic frequency occurred from 11:00 PM to 12:00 AM Mon . During this time 9 SVE(s) occurred. Multiple episodes of ST depression (defined as -1.0 mm or more) were noted in channel 1. The maximum depression of -2.3 mm occurred at 08:41:14 PM Sun. Mult iple episodes of ST depression (defined as -1.0 mm or more) were noted in channel 2. The maximum de pression of -2.3 mm occurred at 08:19:32 AM Mon. Multiple episodes of ST depression (defined as -1.0 mm or more) were noted in channel 3. The maximum depression of -1.9 mm occurred at 11:03:24 AM Mon . TEST INTERPRETATION: Benign Holter monitoring. Signed by : Yash Oconnor
[2016-07-06 12:00] VITALS: BP_SYST 132; BP_SYST 134; BP_SYST 142; BP_DIAS 69; BP_DIAS 83; BP_DIAS 93; PULSE 64; RESP 16; TEMP 96.5; O2SAT 98
[2016-07-06] MEDS: ENOXAPARIN SODIUM 30 MG/0.3 ML SYRINGE SQ SCH (12:01)
--- NOTE | 2016-07-06 12:27 | HHI.PR ---
Subjective Remarks Follow up for CVA. The patient reports feeling better again today. However she is still reporting some numbness throughout the right arm and leg. The right facial numbness has resolved. Denies any unilateral weakness. Denies any headache, lightheadedness, or dizziness. Denies any new medical complaints today. She is eating well, denies difficulty swallowing. Had a normal BM yesterday. Objective Vitals Vital Signs Date Time Temp Pulse Resp B/P Pulse Ox O2 Delivery O2 Flow Rate FiO2 07/06/16 08:00 96.9 61 16 204/89 96 07/06/16 04:30 96.9 67 18 180/81 95 07/05/16 23:30 96.7 65 18 174/72 95 188/82 185/88 07/05/16 20:00 59 07/05/16 19:40 97.2 60 18 136/75 94 07/05/16 15:43 97.1 55 17 146/67 94 I/O 07/05/16 07/05/16 07/05/16 07/06/16 07/06/16 07/06/16 07:00 15:00 23:00 07:00 15:00 23:00 Intake Total 600 ml 650 ml 360 ml 240 ml Output Total 300 ml Balance 600 ml 350 ml 360 ml 240 ml Intake Oral 600 ml 650 ml 360 ml 240 ml Output Urine Total 300 ml # Voids 6 1 3 3 # Bowel Movements 0 1 0 Result Diagram: 07/03/16 0813 07/03/16 0813 Imaging Last Impressions Neck Magnetic Resonance Angiography 07/04/161709 Signed Impressions: Service Date/Time: Monday, July 04, 2016 17:47 - CONCLUSION: 1. Moderate focal stenosis involving the right proximal external carotid artery. 2. Minimal focal stenosis involving the left proximal internal carotid artery and left proximal common carotid artery at the arch. Thaddeus Mcmillan MD Head Magnetic Resonance Angiography 07/04/161709 Signed Impressions: Service Date/Time: Monday, July 04, 2016 17:47 - CONCLUSION: 1. No evidence of significant occlusion or stenosis involving the anterior or middle cerebral arteries. 2. Moderate diffuse narrowing of the left proximal posterior cerebral artery and mild diffuse narrowing of the right proximal posterior cerebral artery. 3. Patent left posterior communicating artery filling the left posterior cerebral artery. Thaddeus Mcmillan MD Brain MRI 5/28/17 1710 Signed Impressions: Service Date/Time: Monday, July 04, 2016 17:47 - CONCLUSION: 1. Focal signal abnormality within the left basal ganglia and posterior pack radiata consistent with acute infarct involving the left middle cerebral artery distribution. 2. Moderate periventricular and subcortical white matter small vessel ischemic changes bilaterally. 3. Old lacunar infarcts involving the right hero, right cerebellar hemisphere and bilateral basal ganglia. 4. Mild cerebral atrophy. 5. No acute hemorrhage, midline shift or extra-axial fluid collections. 6. No abnormal enhancing mass lesion. Thaddeus Mcmillan MD Carotid Artery Ultrasound 07/04/16 0000 Signed Impressions: Service Date/Time: Monday, July 04, 2016 15:00 - CONCLUSION: Questionable 50-69%% stenosis involving the internal carotid arteries bilaterally. Outpatient CT of the carotid arteries would be helpful for confirmation if clinically indicated. Thaddeus Mcmillan MD Head CT 07/03/16 1101 Signed Impressions: Service Date/Time: Sunday, July 03, 2016 11:25 - CONCLUSION: 1. No acute intracranial abnormality is identified. 2. Nonacute findings include mild atrophy and mild periventricular white matter low attenuation characteristic of chronic microvascular ischemia. Prabhakar Lerma MD Hip and Pelvis X-Ray 07/02/16 1913 Signed Impressions: Service Date/Time: Saturday, July 02, 2016 19:30 - CONCLUSION: 1. No acute abnormality. 2. Old trauma involving the right pelvis. Eric Mendez Jr., MD Lower Extremity CT 07/02/16 0000 Signed Impressions: Service Date/Time: Saturday, July 02, 2016 20:57 - CONCLUSION: 1. Old trauma as detailed above. 2. No acute abnormality. 3. Mild right hip osteoarthritis. Eric Mendez Jr., MD Objective Remarks GENERAL: Well-nourished, well-developed very pleasant elderly female patient in [facility]. SKIN: Warm and dry. No rash. HEENT: Normocephalic. Atraumatic.Pupils equal and round. Mucous membranes pink and moist. NECK: Supple. Trachea midline. CARDIOVASCULAR: Regular rate and rhythm. S1, S2 noted. No murmur appreciated. RESPIRATORY: No accessory muscle use. Clear to auscultation. Breath sounds equal bilaterally. GASTROINTESTINAL: Abdomen soft, non-tender, nondistended. Normoactive bowel sounds x4. MUSCULOSKELETAL: No obvious deformities. Extremities without clubbing, cyanosis , or edema. NEUROLOGICAL: Awake and alert. No obvious cranial nerve deficits. Motor grossly within normal limits. 5/5 muscle strength in bilateral upper and lower extremities. Normal speech. No facial droop/lid lag/tongue deviation. Sensation equal and intact throughout bilateral upper and lower extremities. PSYCHIATRIC: Appropriate mood and affect; insight and judgment normal. Medications and IVs Current Medications Medications (Trade) Dose Ordered Sig/Heraclio Route Start Time Stop Time Status Last Admin (NS Flush) 2 ml UNSCH PRN IV FLUSH 07/02/16 22:15 (NS Flush) 2 ml BID IV FLUSH 07/03/16 09:00 07/06/16 09:09 (Zofran Inj) 4 mg Q6H PRN IVP 07/02/16 22:15 (Tylenol) 650 mg Q6H PRN PO 07/02/16 22:15 (Mely-Colace) 1 tab BID PO 07/03/16 09:00 07/06/16 09:08 (Milk Of Magnesia Liq) 30 ml Q12H PRN PO 07/02/16 22:15 (Senokot) 17.2 mg Q12H PRN PO 07/02/16 22:15 (Dulcolax Supp) 10 mg DAILY PRN RECTAL 07/02/16 22:15 (Lactulose Liq) 30 ml DAILY PRN PO 07/02/16 22:15 (Lipitor) 20 mg HS PO 07/03/16 21:00 07/05/16 20:17 (Wellbutrin Sr 12 Hr) 100 mg DAILY PO 07/03/16 09:00 07/06/16 09:08 (PROzac) 20 mg DAILY PO 07/03/16 09:00 07/06/16 09:08 (Lopressor) 25 mg BID PO 07/03/16 09:00 Hold 07/05/16 08:27 (Protonix) 40 mg DAILY PO 07/03/16 09:00 07/06/16 09:08 (Ferrous Sulfate) 325 mg DAILY PO 07/03/16 09:00 07/06/16 09:08 (D50w (Vial) Inj) 50 ml UNSCH PRN IV 07/04/16 13:15 (Glucagon Inj) 1 mg UNSCH PRN OTHER 07/04/16 13:15 (Ecotrin Ec) 325 mg DAILY PO 07/04/16 17:15 07/08/16 17:14 07/06/16 09:08 (Lovenox Inj) 30 mg Q24H SQ 07/05/16 10:45 07/06/16 12:01 (Plavix) 75 mg DAILY PO 07/05/16 11:00 07/06/16 09:08 (Vasotec Inj) 1.25 mg Q6H PRN IV PUSH 07/06/16 08:45 07/06/16 09:07 A/P Problem List: (1) Recurrent falls ICD Code: R29.6 Status: Acute (2) Right hip pain ICD Code: M25.551 Status: Acute (3) Renal insufficiency ICD Code: N28.9 Status: Chronic (4) HTN (hypertension) ICD Code: I10 Status: Chronic (5) DM (diabetes mellitus) ICD Code: E11.9 Status: Chronic (6) CVA (cerebral vascular accident) ICD Code: I63.9 Status: Acute Assessment and Plan 75-year-old female with a PMH of Anxiety, Depression, HTN, Hyperlipidemia, GERD and Diet Controlled DM who presented with right hip pain and falls Recurrent Falls: Likely secondary to CVA and orthostatic hypotension. -Hip and pelvis imaging negative for acute findings. -Continue pain control with Lortab prn. -PT/OT consulted, recommends rehab, Case Management consulted. Acute Ischemic Left MCA CVA: -Brain MRI images reviewed, shows focal signal abnormality at left basal ganglia and posterior pack radiata consistent with left MCA infarct. -Carotid ultrasound and neck MRA with possible moderate stenosis, see below. -S/p HOB flat and allowed permissive hypertension -Neurology consulted -Echocardiogram pending -Holter monitor unremarkable -On Aspirin, transition to Plavix, d/c aspirin in 3 days per neuro, also started on fish oils, already on statin -Consult rehabilitation medicine -PT/OT consulted, recommends rehab, case management assisting -cleared for discharge by neurology if echocardiogram unremarkable Carotid Stenosis: -Carotid U/S showed questionable 50-69% stenosis involving bilateral internal carotid arteries -Neck MRA showed moderate focal stenosis involving right proximal external carotid artery; minimal focal stenosis involving left proximal internal carotid artery and left proximal common carotid artery at the arch. -Consulted vascular surgery, no surgical intervention warranted at this time, recommends antiplatelet therapy (already on ASA) and statin therapy (already on atorvastatin). -outpatient f/up with Dr. Hunter in 6months for repeat carotid duplex Right Hip Pain: Suspect secondary to mild arthritis seen on imaging. Reviewed: Hip and pelvis x-ray with no acute abnormality, old pelvis fracture. Hip CT with no acute abnormality, mild right hip osteoarthritis, old pelvis fracture. -Continue conservative therapy with PT and pain control with oral [place]. Orthostatic hypotension: Likely secondary to CVA. Subclinical hypothyroidism. B12 within normal limits. -Continue monitor orthostatic vitals. -CATY blackwell. Diabetes mellitus: Reportedly diet controlled. Random glucoses within normal limits, however hemoglobin A1c is 6.8. -Monitor Accu-Cheks. Continue with SSI for now. Hyperlipidemia: Lipid panel reviewed with low LDL and favorable HDL. -Continue statin. CKD stage III: Creatinine 1.38, previously 1.30 on 05/27/16. -Appears stable. Monitor. HTN: BP is labile. Caution with orthostasis. -S/p permissive hypertension. -restart patient's beta varnider -IV Vasotec prn Other chronic medical conditions including depression, HLD, CHANI, GERD: Stable at this time, will continue home medications as indicated. DVT Prophylaxis: SCD/Teds. Lovenox. Discharge Planning Awaiting echocardiogram results. Possibly discharge today or tomorrow. Needs rehab placement, case management assisting. Problem Qualifiers (1) HTN (hypertension): Qualified Code: I10 - Essential hypertension (2) DM (diabetes mellitus): Qualified Code: E11.22 - Type 2 diabetes mellitus with stage 3 chronic kidney disease, without long-term current use of insulin (3) CVA (cerebral vascular accident): Qualified Code: I63.311 - Cerebrovascular accident (CVA) due to thrombosis of right middle cerebral artery Alvina Cruz PA-C July 06, 2016 12:27 pm
--- NOTE | 2016-07-06 13:33 | EC ---
Study Study Date:07/06/2016 STUDY CONCLUSIONS SUMMARY - Left ventricle: The cavity size was normal. Wall thickness was increased in a pattern of mild LVH. There was concentric hypertrophy. Systolic function was moderately reduced. The estimated ejection fraction was in the range of 40% to 45%. Diffuse hypokinesis. Doppler parameters are consistent with abnormal left ventricular relaxation (grade 1 diastolic dysfunction). - Mitral valve: Mild regurgitation. If LV function is below 40, please consider prescribing an ACEI or ARB or document rationale for non-use. PROCEDURE DATA STUDY STATUS: Elective. Procedure: Transthoracic echocardiography. Image quality was good. Scanning was performed from the parasternal, apical, and subcostal acoustic windows. Study completion: The patient tolerated the procedure well. Transthoracic echocardiography. M-mode, complete 2D, complete spectral Doppler, and color Doppler. Height: Height: 60in. Weight: Weight: 166.7lb. Body mass index: BMI: 32.6kg/m^2. Body surface area: BSA: 1.73m^2. Patient status: Inpatient. CARDIAC ANATOMY LEFT VENTRICLE: The cavity size was normal. Wall thickness was increased in a pattern of mild LVH. There was concentric hypertrophy. Systolic function was moderately reduced. The estimated ejection fraction was in the range of 40% to 45%. Diffuse hypokinesis. Doppler parameters are consistent with abnormal left ventricular relaxation (grade 1 diastolic dysfunction). AORTIC VALVE: The valve appears to be grossly normal. Probably trileaflet. Doppler: There was no stenosis. No significant regurgitation. Valve area: 1.6cm^2(VTI). Indexed valve area: 0.92cm^2/m^2 (VTI). Valve area: 1.57cm^2 (Vmax). Indexed valve area: 0.91cm^2/m^2 (Vmax). Mean gradient: 8mm Hg (S). Peak gradient: 18mm Hg (S). MITRAL VALVE: The valve appears to be grossly normal. Doppler: There was no evidence for stenosis. Mild regurgitation. RIGHT VENTRICLE: The cavity size was normal. Systolic function was normal. PULMONIC VALVE: Not well visualized. Doppler: There was no evidence for stenosis. Trace regurgitation. TRICUSPID VALVE: The valve appears to be grossly normal. Doppler: There was no evidence for stenosis. Trace to mild regurgitation. PERICARDIUM: There was no pericardial effusion. Patient weight: 166.7lb _Ejection fraction:_ 65-75% _Fractional shortening:_ 32% up to 5Kg 5-11.5Kg 11.6-22.9Kg 23-45Kg 45-57Kg Aortic Root 7-13 <17 13-22 17-27 17-27 LA diam 6-13 <23 24-38 33-47 37-40 RVID 10-17 7-15 7-15 7-18 8-17 LVIDd 12-22 <32 24-38 33-47 37-40 LVPW 2-4 3-6 5-7 6-8 7-8 IVS 2-4 3-6 5-7 6-8 7-8 BASIC MEASUREMENTS ADULT NORMAL Left ventricle LV internal dimension, ED, chordal *53.6 mm 43-52 level, PLAX LV internal dimension, ES, chordal *45 mm 23-38 level, PLAX Fractional shortening, chordal level, *16 % >29 PLAX LV posterior wall thickness, ED 11.5 mm IVS/LVPW ratio, ED 1 <1.3 Ventricular septum Septal thickness, ED 11.5 mm Aortic valve Leaflet separation 17 mm 15-26 Aorta Root diameter, ED 30 mm Left atrium Anterior-posterior dimension 31 mm Anterior-posterior dimension index 1.79 cm/m^2 <2.2 BASIC MEASUREMENTS ADULT NORMAL Aortic valve Leaflet separation 17 mm 15-26 DOPPLER MEASUREMENTS ADULT NORMAL Main pulmonary artery Pressure, S 25 mm Hg =30 Aortic valve Peak velocity, S 212 cm/s Mean velocity, S 128 cm/s VTI, S 36.8 cm Mean gradient, S 8 mm Hg Peak gradient, S 18 mm Hg Valve area, VTI 1.6 cm^2 Valve area index, VTI 0.92 cm^2/m^2 Valve area, Vmax 1.57 cm^2 Valve area index, Vmax 0.91 cm^2/m^2 Mitral valve Peak E-wave velocity 46.9 cm/s Peak A-wave velocity 92.3 cm/s Deceleration time *394 ms 150-230 Peak E/A ratio 0.5 Tricuspid valve Regurgitant peak velocity 209 cm/s Peak RV-RA gradient, S 17 mm Hg Maximal regurgitant velocity 209 cm/s Systemic veins Estimated CVP 10 mm Hg Right ventricle RV pressure, S 27 mm Hg <30 Pulmonic valve Peak velocity, S 76.7 cm/s LEGEND: Mean values are shown as u=mean value. Asterisk (*) mclean values outside specified normal range. Prepared and signed by Carlos Curry [id number]
[2016-07-06] MEDS ORDERED: HYDR-3516 PO (13:51)
[2016-07-06] MEDS ORDERED: ASPI325T33 PO (13:51)
[2016-07-06] MEDS ORDERED: PLAV75TA29 PO (13:51)
--- NOTE | 2016-07-06 13:56 | HHI.DS ---
cc: Manuel Gomez MD Discharge Summary Admission Date July 02, 2016 Discharge Date: July 06, 2016 Admitting Diagnosis right hip pain, falling spells, unilateral weakness (1) CVA (cerebral vascular accident) ICD Code: I63.9 Diagnosis: Principal (2) Recurrent falls ICD Code: R29.6 Diagnosis: Principal (3) Right hip pain ICD Code: M25.551 Diagnosis: Secondary (4) Renal insufficiency ICD Code: N28.9 Diagnosis: Secondary (5) HTN (hypertension) ICD Code: I10 Diagnosis: Secondary (6) DM (diabetes mellitus) ICD Code: E11.9 Diagnosis: Secondary Procedures None. Brief History - From Admission This is a 75-year-old female with a PMH of Anxiety, Depression, HTN, Hyperlipidemia, GERD and Diet Controlled DM who presented to the ER with complaints of right hip pain after fall. Per patient had complaints acute right hip pain 2 days ago, heard sudden "snap" and had immediate complaints of right hip pain. No fall or injury at that time. Since then, however, she's had ongoing right hip pain w/ multiple falls. Unable to walk at this time due to pain. On arrival, BP 165/104, HR 77, O2 sat 99% on RA, Afebrile. CBC unremarkable. Creatinine 1.41, previously 1.30 on 05/27/16. UA negative. Hip X -ray with no acute findings, old trauma involving right pelvis. CT Lower Extremity with old trauma, no acute findings. Pt unable to ambulate at this time, unsafe discharge home. CBC/BMP: 07/03/16 0813 07/03/16 0813 Significant Findings Laboratory Tests Test 07/04/16 07/04/16 07/04/16 06:19 09:53 20:44 Free Triiodothyronine (T3) 1.94 PG/ML pg/dL (2.18-3.98) Hemoglobin A1c 6.8 % (4.3-6.0) HDL Cholesterol 81.2 MG/DL (40.0-60.0) Troponin I LESS THAN 0.02 NG/ML (0.02-0.05) Imaging Last Impressions Neck Magnetic Resonance Angiography 07/04/161709 Signed Impressions: Service Date/Time: Monday, July 04, 2016 17:47 - CONCLUSION: 1. Moderate focal stenosis involving the right proximal external carotid artery. 2. Minimal focal stenosis involving the left proximal internal carotid artery and left proximal common carotid artery at the arch. Thaddeus Mcmillan MD Head Magnetic Resonance Angiography 07/04/161709 Signed Impressions: Service Date/Time: Monday, July 04, 2016 17:47 - CONCLUSION: 1. No evidence of significant occlusion or stenosis involving the anterior or middle cerebral arteries. 2. Moderate diffuse narrowing of the left proximal posterior cerebral artery and mild diffuse narrowing of the right proximal posterior cerebral artery. 3. Patent left posterior communicating artery filling the left posterior cerebral artery. Thaddeus Mcmillan MD Brain MRI 07/04/161709 Signed Impressions: Service Date/Time: Monday, July 04, 2016 17:47 - CONCLUSION: 1. Focal signal abnormality within the left basal ganglia and posterior pack radiata consistent with acute infarct involving the left middle cerebral artery distribution. 2. Moderate periventricular and subcortical white matter small vessel ischemic changes bilaterally. 3. Old lacunar infarcts involving the right hero, right cerebellar hemisphere and bilateral basal ganglia. 4. Mild cerebral atrophy. 5. No acute hemorrhage, midline shift or extra-axial fluid collections. 6. No abnormal enhancing mass lesion. Thaddeus Mcmillan MD Carotid Artery Ultrasound 07/04/16 0000 Signed Impressions: Service Date/Time: Monday, July 04, 2016 15:00 - CONCLUSION: Questionable 50-69%% stenosis involving the internal carotid arteries bilaterally. Outpatient CT of the carotid arteries would be helpful for confirmation if clinically indicated. Thaddeus Mcmillan MD Head CT 07/03/16 1101 Signed Impressions: Service Date/Time: Sunday, July 03, 2016 11:25 - CONCLUSION: 1. No acute intracranial abnormality is identified. 2. Nonacute findings include mild atrophy and mild periventricular white matter low attenuation characteristic of chronic microvascular ischemia. Prabhakar Lerma MD Hip and Pelvis X-Ray 07/02/16 1913 Signed Impressions: Service Date/Time: Saturday, July 02, 2016 19:30 - CONCLUSION: 1. No acute abnormality. 2. Old trauma involving the right pelvis. Eric Mendez Jr., MD Lower Extremity CT 07/02/16 0000 Signed Impressions: Service Date/Time: Saturday, July 02, 2016 20:57 - CONCLUSION: 1. Old trauma as detailed above. 2. No acute abnormality. 3. Mild right hip osteoarthritis. Eric Mendez Jr., MD PE at Discharge GENERAL: Well-nourished, well-developed very pleasant elderly female patient in [facility]. SKIN: Warm and dry. No rash. HEENT: Normocephalic. Atraumatic.Pupils equal and round. Mucous membranes pink and moist. NECK: Supple. Trachea midline. CARDIOVASCULAR: Regular rate and rhythm. S1, S2 noted. No murmur appreciated. RESPIRATORY: No accessory muscle use. Clear to auscultation. Breath sounds equal bilaterally. GASTROINTESTINAL: Abdomen soft, non-tender, nondistended. Normoactive bowel sounds x4. MUSCULOSKELETAL: No obvious deformities. Extremities without clubbing, cyanosis , or edema. NEUROLOGICAL: Awake and alert. No obvious cranial nerve deficits. Motor grossly within normal limits. 5/5 muscle strength in bilateral upper and lower extremities. Normal speech. No facial droop/lid lag/tongue deviation. Sensation equal and intact throughout bilateral upper and lower extremities. PSYCHIATRIC: Appropriate mood and affect; insight and judgment normal. Hospital Course 75-year-old female with a PMH of Anxiety, Depression, HTN, Hyperlipidemia, GERD and Diet Controlled DM who presented with right hip pain and falls Recurrent Falls: Likely secondary to CVA and orthostatic hypotension. -Hip and pelvis imaging negative for acute findings. -Continue pain control with Lortab prn. -PT/OT consulted, recommends rehab, Case Management consulted, placement arranged at [facility] Acute Ischemic Left MCA CVA: -Brain MRI images reviewed, shows focal signal abnormality consistent with left MCA infarct. -Carotid ultrasound and neck MRA with possible moderate stenosis, see below. -S/p HOB flat and allowed permissive hypertension -Neurology consulted -Echocardiogram pending at discharge -Holter monitor unremarkable -On Aspirin, started on Plavix, d/c aspirin in 3 days per neuro (on 07/09), also started on fish oils, already on statin -Consult rehab medicine -PT/OT consulted, recommends rehab, case management arranged placement at [facility] -cleared for discharge by neurology if echocardiogram unremarkable (can be followed up at [facility]) Carotid Stenosis: -Carotid U/S showed questionable 50-69% stenosis involving bilateral internal carotid arteries -Neck MRA showed moderate focal stenosis involving right proximal external carotid artery; minimal focal stenosis involving left proximal internal carotid artery and left proximal common carotid artery at the arch. -Consulted vascular surgery, no surgical intervention warranted at this time, recommends antiplatelet therapy (already on ASA) and statin therapy (already on atorvastatin). -outpatient f/up with Dr. Hunter in 6months for repeat carotid duplex Right Hip Pain: Suspect secondary to mild arthritis seen on imaging. Reviewed: Hip and pelvis x-ray with no acute abnormality, old pelvis fracture. Hip CT with no acute abnormality, mild right hip osteoarthritis, old pelvis fracture. -Continue conservative therapy with PT and pain control with oral [place] prn. Orthostatic hypotension: Likely secondary to CVA. Subclinical hypothyroidism. B12 within normal limits. -Continue monitor orthostatic vitals. -CATY blackwell. Diabetes mellitus: Reportedly diet controlled. Random glucoses within normal limits, however hemoglobin A1c is 6.8. -Monitor Accu-Cheks. Continue with SSI for now. Hyperlipidemia: Lipid panel reviewed with low LDL and favorable HDL. -Continue statin. CKD stage III: Creatinine 1.38, previously 1.30 on 05/27/16. -Appears stable. Monitor. HTN: BP is labile. Caution with orthostasis. -S/p permissive hypertension, decrease blood pressure slowly -restarted patient's beta varinder -IV Vasotec prn -may need to add additional antihypertensives if BP does not continue to improve , monitor. Other chronic medical conditions including depression, HLD, CHANI, GERD: Stable at this time, continued home medications as indicated. DVT Prophylaxis: SCD/Teds. Lovenox. Pt Condition on Discharge: Stable Discharge Disposition: Rehab Inpatient Discharge Time: > 30 minutes Discharge Instructions DIET: Follow Instructions for: Heart Healthy Diet Activities you can perform: Regular-No Restrictions Follow up Referrals: Neurology - 1 Week with Manuel Gomez MD PCP Follow-up - 1 Week with Jose Holloway MD Vascular Surgery - 6 Months with Thaddeus Hunter MD New Orders: US CAROTID ARTERIES - 6 Months New Medications: Aspirin DR (Aspirin EC) 325 Mg Tabdr 325 MG PO DAILY Prevent Blood Clot Days 2 TAB Clopidogrel (Plavix) 75 Mg Tab 75 MG PO DAILY Prevent Blood Clot #30 TAB Hydrocodone-Acetaminophen (Hydrocodone-Acetaminophen) 5-325 mg Tab 1 TAB PO Q8HR PRN PAIN SCALE 6-10 #6 TAB Continued Medications: Atorvastatin (Atorvastatin) 20 Mg Tab 20 MG PO HS Cholesterol Management #30 Ref 0 TAB Bupropion HCl ER 12 HR (Wellbutrin SR 12 HR) 100 Mg Tab 100 MG PO DAILY Depression Control #30 Ref [address] (Ferrous Sulfate DR) 324 Mg Tabdr 325 MG PO DAILY Nutritional Supplement #30 Ref 0 TAB Fluoxetine (Fluoxetine) 20 Mg Capsule 20 MG PO DAILY #30 Ref 0 CAP Metoprolol Tartrate (Metoprolol Tartrate) 25 Mg Tab 25 MG PO BID Blood Pressure Management #30 Ref 0 TAB Pantoprazole (Protonix) 40 Mg Tab 40 MG PO DAILY Ulcer Prevention #30 Ref 0 TAB Alvina Cruz PA-C July 06, 2016 1:56 pm
[2016-07-06 15:26] VITALS: BP 134/69; PULSE 66; RESP 16; TEMP 97.6; O2SAT 94
[2016-07-06 18:10] VITALS: PULSE 69
[2016-07-15] MEDS ORDERED: WHEEMIS3 (14:37)
[2016-07-20] MEDS ORDERED: PLAV75TA29 PO (08:46)
[2016-07-20] MEDS ORDERED: ACET1TAB86 PO (08:46)
[2016-07-20] MEDS ORDERED: PROT40TA PO (08:46)
[2016-07-20] MEDS ORDERED: ATOR20TA15 PO (08:46)
[2016-07-20] MEDS ORDERED: AMLO5 PO (08:46)
[2016-07-20] MEDS ORDERED: ASPI325T33 PO (08:46)
[2016-07-20] MEDS ORDERED: BUPR100CR PO (08:46)
[2016-07-20] MEDS ORDERED: HYDR-3516 PO (08:46)
[2016-07-20] MEDS ORDERED: FERR324T4 PO (08:46)
[2016-07-20] MEDS ORDERED: METO25TA3 PO (08:46)
== END 2016-07-06 18:53 | DRG 66 ==
LOC: NEPC 18:34 → NEDA 22:07 → NEPFCDU 22:59 → OBSVTOIN 07-05 07:11 → N06A 07-05 10:50
PROVIDERS: ADMIT Internal Medicine; ATTEND Internal Medicine
DX: I63.512 Cerebral infarction due to unspecified occlusion or stenosis of left middle cerebral artery (principal); E11.9 Type 2 diabetes mellitus without complications; N18.3 Chronic kidney disease, stage 3 (moderate); I12.9 Hypertensive chronic kidney disease with stage 1 through stage 4 chronic kidney disease, or unspecified chronic kidney disease; R27.0 Ataxia, unspecified; R29.6 Repeated falls; M16.11 Unilateral primary osteoarthritis, right hip; F32.9 Major depressive disorder, single episode, unspecified; E78.5 Hyperlipidemia, unspecified; F41.9 Anxiety disorder, unspecified; I65.23 Occlusion and stenosis of bilateral carotid arteries; I95.1 Orthostatic hypotension; E03.9 Hypothyroidism, unspecified; Z79.82 Long term (current) use of aspirin; Z86.73 Personal history of transient ischemic attack (TIA), and cerebral infarction without residual deficits; K21.9 Gastro-esophageal reflux disease without esophagitis; Z96.653 Presence of artificial knee joint, bilateral; Z87.891 Personal history of nicotine dependence
CPT/HCPCS: 70450; 70544; 70548; 70553; 73502; 73700; 80053; 80061; 81001; 82550; 82607; 82948; 83036; 84425; 84439; 84443; 84481; 84484; 85025; 85652; 86592; 93005; 93225; 93226; 93306; 93880; 99285; A9577; G0378; G8987-GO; G8987-GP; G8988-GO; G8988-GP; J1650; J1815; J1885; J2270; J7030